=== PATIENT | female | born 1950 | race Caucasian/White ===

== ENCOUNTER 2015-12-28 10:31 | Outpatient (RCR) | payer MEDICARE, BC ==
[~2015-12-28 10:31] MED LIST: ACIPHEX20 MG PO; ADVAIR 500/28 DISKU1 IH; ALBUTEROL0.83 MG/ML IH; AMITIZA24 MCG PO; AMITIZA8 MCG; AMITIZA8 MCG PO; ASPIRIN 32325 MG/TA1 PO; ASPIRIN 32325 MG/TAB PO; ASPIRIN 81M81 MG/TA2 PO; ASPIRIN E.C. 8181 MG PO; ATROVENT I0.2 MG/1 M IH; ATROVENT INHALE14 GM IH; ATROVENT NASAL15 ML NS; BACTRIM DS 8001 TAB PO; BENTYL10 MG PO; BIAXIN 500MG T500 MG PO; BUSPAR10 MG PO; CARVEDILOL PO; CELEBREX 200MG200 MG PO; CELEBREX100 MG PO; CELEBREX200 MG PO; CELEXA40 MG PO; CHANTIX STARTER1 TAB PO; CHANTIX1 TAB PO; CLINDAMYCIN300 MG PO; CLOPIDOGREL; COLACE 100100 MG/CAP PO; COLACE100 MG/10 PO; COREG 3.123.125 MG/T PO; COREG3.125 MG PO; COREG6.25 MG PO; COUMADIN 5MG5 MG/TAB PO; COZAAR PO; CREON 60000 U-11 ECC PO; CYMBALTA 30MG30 MG PO; CYMBALTA 60MG60 MG PO; DALIRESP500 MCG PO; DESYREL 100MG100 MG PO; DESYREL 50MG50 MG; DESYREL 50MG50 MG PO; DULCOLAX S10 MG/SUPP RC; ENULOSE10 GM/151 PO; ERY-TAB250 M1 PO; FERROUS SU325 MG/TAB PO; FLOMAX 0.40.4 MG/CAP PO; FLONASE NASAL S16 GM NS; FLONASE0.05 MG/AC NS; FLOVENT 220MCG7.9 GM IH; FLOVENT0.22 MG/AC IH; FORADIL AERO0.012 MG IH; HCTZ; HCTZ/TRIAMTEREN1 TAB PO; IPRATROPIUM BROM3 M1 IH; LACTULOSE; LASIX40 MG PO; LIPITOR20 MG PO; LIPITOR40 MG PO; LOTENSIN20 MG PO; LYRICA 150MG C150 MG PO; LYRICA150 MG PO; MACROBID 1100 MG/CAP PO; MAXZIDE-25MG TA1 TAB PO; MEDROL 4MG DOSPA4 MG PO; MULTIPLE VITAMI1 TAB PO; NICODERM C21 MG/PATC TOP; NITROQUICK0.4 MG SL; NORCO 325 MG-51 TAB PO; OXYCODONE; OXYCODONE PO; OXYCODONE5 MG PO; OXYCONTIN 20MG20 MG PO; OXYCONTIN10 MG PO; OXYCONTIN30 MG PO; OXYCONTIN40 MG PO; OXYGEN; PERCOCET 325 MG1 TA2 PO; PERCOCET 650 MG1 TAB PO; PHENERGAN W/CO120 M1 PO; POTASSIUM20 MEQ PO; PREDNISONE10 MG PO; PREDNISONE20 MG PO; PREVACID 30MG30 M1 PO; PRIL40 PO; PROVENTIL0.09 MG/Ac IH; PYRIDIUM 100MG100 MG PO; RAPAFLO4 MG PO; REGLAN 10MG10 MG/TAB PO; REGLAN 5MG T5 MG/TAB PO; REQUIP 0.5MG0.5 MG PO; REQUIP0.25 MG; ROXICODONE 55 MG/TAB PO; RT ADVAIR 228 DISKUS IH; RT ADVAIR 528 DISKUS IH; RT ALBUTER2.5 MG/0.5 IH; RT SPIRIVA18 MCG IH; SENNA LEAVES1 GRA; SENOKOT TABLET1 EA PO; SENOKOT8.6 MG PO; SIMVASTATIN40 MG PO; SINGULAIR 110 MG/TAB PO; SINGULAIR10 MG PO; SPIRIVA INHALER IH; SPIRIVA18 MCG IH; TRIAMTERENE W/H1 CAP PO; UROXATRAL10 M1 PO; VALIUM 2MG T2 MG/TAB PO; VALIUM 5MG T5 MG/TAB PO; VANCOCIN H125 MG/CAP; VENTOLIN0.09 MG IH; VICODIN 5/5001 UDTAB PO; VITAMIN C BUFF500 MG PO; XOPENEX 1.1.25 MG/3 IH; XOPENEX0.63 MG/3 IH; ZETIA10 MG PO; ZITHROMAX 250M250 MG PO; ZITHROMAX500 M2 PO; ZOCOR 40MG40 MG PO
[2016-01-16] MEDS ORDERED: PRAVACHOL 40MG40 MG PO (10:09)
[2016-01-16] MEDS ORDERED: SPIRIVA RE2.5 MCG/Ac IH (10:10)
[2016-01-16] MEDS ORDERED: AMITRIPTYLINE H25 M1 PO (10:11)
[2016-01-16] MEDS ORDERED: BACTRIM DS 8001 TAB PO (11:40)
[2016-01-18] MEDS ORDERED: ERY-TAB250 M1 PO (12:00)
[2016-01-25] MEDS ORDERED: WELLBUTRIN 75MG75 MG PO (13:47)
[2016-02-08] MEDS ORDERED: CYMBALTA 60MG60 MG (11:58)
[2016-02-08] MEDS ORDERED: BACTRIM DS 8001 TAB PO (14:50)
[2016-03-15] MEDS ORDERED: ALKA-SELTZER GO1 TE1 PO (08:54)
[2016-03-15] MEDS ORDERED: ROBITUSSIN A-C S1 M1 (08:55)
[2016-03-15] MEDS ORDERED: BIAXIN 500MG T500 MG PO (08:55)
== END 2016-03-27 | disposition home or self-care (01) ==
LOC: WSC
DX: M79.601 Pain in right arm (principal); R20.0 Anesthesia of skin; G20 Parkinson's disease

== ENCOUNTER 2016-03-15 08:05 | Day surgery (SDC) | payer MEDICARE ==
[~2016-03-15 08:05] MED LIST changes: +AMITRIPTYLINE H25 M1 PO; +CYMBALTA 60MG60 MG; +PRAVACHOL 40MG40 MG PO; +SPIRIVA RE2.5 MCG/Ac IH; +WELLBUTRIN 75MG75 MG PO
[2016-03-15] MEDS ORDERED: ALKA-SELTZER GO1 TE1 PO (08:54)
[2016-03-15] MEDS ORDERED: BIAXIN 500MG T500 MG PO (08:55)
[2016-03-15] MEDS ORDERED: ROBITUSSIN A-C S1 M1 (08:55)
[2016-03-15 11:00] VITALS: BP 150/79; PULSE 69; TEMP 97.9
[2016-03-15 11:47] VITALS: BP 150/93; PULSE 96
[2016-03-15 12:08] VITALS: BP 154/107; PULSE 84
== END 2016-03-15 15:26 | disposition home or self-care (01) ==
LOC: SDCO 08:05 → MEDICAL 08:06 → SDCO 09:30
DX: R05 Cough (principal); G20 Parkinson's disease; J44.9 Chronic obstructive pulmonary disease, unspecified; J45.909 Unspecified asthma, uncomplicated; I50.9 Heart failure, unspecified; Z87.891 Personal history of nicotine dependence
CPT/HCPCS: OP; J0456; J2704; J2920; J7050; J7120

== ENCOUNTER → 2016-07-01 | Outpatient (CLI) | payer MEDICARE ==
[~2016-07-01] MED LIST changes: +ALKA-SELTZER GO1 TE1 PO; +COZAAR 50MG50 MG/TAB PO; +COZAAR100 MG PO; +ERY-TAB250 MG PO; +FLEXERIL 1010 MG/TAB PO; +FLONASEALLERGY NS; +INCRUSE EL62.5 MCG/A IH; +K-TAB20 PO; +KLONOPIN 1MG1 MG PO; +LANOXIN 0.120.125 MG PO; +LASIX 40MG TABL40 MG PO; +NEURONTIN600 MG/TAB PO; +PERFOROMIS20 MCG/2 M IH; +PROAIR HFA0.09 MG/AC IH; +PULMICORT R1 MG/2 ML IH; +PULMICORT0.5 MG/2 M IH; +ROBITUSSIN A-C S1 M1; +SMZ/TMPDS PO; +VANCOCIN HCL1 GM IV
== END ==
LOC: WCC 09:00
DX: T81.31XA Disruption of external operation (surgical) wound, not elsewhere classified, initial encounter (principal)
CPT/HCPCS: 17717; 27517; A6207; A6212; G0463

== ENCOUNTER → 2016-07-04 | Outpatient (CLI) | payer MEDICARE | LOC: WCC 09:00 | DX: Z00.00 Encounter for general adult medical examination without abnormal findings (principal) ==

== ENCOUNTER → 2016-07-04 | Outpatient (CLI) | payer MEDICARE | LOC: ZCOL.LAB 14:50 | DX: T81.31XA Disruption of external operation (surgical) wound, not elsewhere classified, initial encounter (principal) ==

== ENCOUNTER → 2016-07-11 | Outpatient (CLI) | payer MEDICARE | LOC: WCC 09:36 | DX: Z00.00 Encounter for general adult medical examination without abnormal findings (principal) ==

== ENCOUNTER 2016-08-07 08:48 | Emergency (ER) | payer MEDICARE ==
[~2016-08-07] VITALS: Ht 170.2 cm; Wt 71.4 kg
[~2016-08-07 08:48] MED LIST changes: -COZAAR 50MG50 MG/TAB PO; -COZAAR100 MG PO; -ERY-TAB250 MG PO; -FLEXERIL 1010 MG/TAB PO; -FLONASEALLERGY NS; -INCRUSE EL62.5 MCG/A IH; -K-TAB20 PO; -KLONOPIN 1MG1 MG PO; -LANOXIN 0.120.125 MG PO; -LASIX 40MG TABL40 MG PO; -NEURONTIN600 MG/TAB PO; -PERFOROMIS20 MCG/2 M IH; -PROAIR HFA0.09 MG/AC IH; -PULMICORT R1 MG/2 ML IH; -PULMICORT0.5 MG/2 M IH; -SMZ/TMPDS PO; -VANCOCIN HCL1 GM IV
[2016-08-07 08:50] VITALS: TEMP 98.8
[2016-08-07] MEDS ORDERED: SMZ/TMPDS PO (08:55)
[2016-08-07 09:36] LABS: BASO # 0.1 (0.0-0.2); BASO % 0.8 % (0.0-2.0); EOS # 0.1 (0.0-0.7); EOS % 1.2 % (0-4.0); GRAN # 5.3 (1.4-6.5); GRAN % 67.8 % (42.2-75.2); HEMATOCRIT 43.9 % (37.0-47.0); HEMOGLOBIN 14.1 g/dl (12.5-16.0); LYMPH # 1.7 (1.2-3.4); LYMPH % 21.7 % (20.0-51.0); MEAN CELL VOLUME 92 fl (80.0-100.0); MEAN CORPUSCULAR HEMOGLOBIN 30 pg (27.0-31.0); MEAN CORPUSCULAR HGB CONC 32 g/dl (33.0-37.0); MEAN PLATELET VOLUME 9.6 fl (7.4-10.4); MONO # 0.7 (0.1-0.6); MONO % 8.4 % (1.7-9.3); PLATELET COUNT 304 K/mm3 (130-400); RED BLOOD COUNT 4.76 M/mm3 (4.10-5.30); REDCELL DISTRIBUTION WIDTH-CV 12.9 % (11.5-14.5); WHITE BLOOD COUNT 7.8 K/mm3 (4.8-10.8)
[2016-08-07 09:39] LABS: PH 6 (5-8); SQUAMOUS EPITHELIAL None Seen /hpf; URINE APPEARANCE Clear; URINE BACTERIA Rare /hpf; URINE BILIRUBIN Negative (NEGATIVE); URINE BLOOD Negative (NEGATIVE); URINE COLOR Yellow; URINE GLUCOSE Negative (NEGATIVE); URINE KETONE Negative (NEGATIVE); URINE RBC 0-2 /hpf; URINE UROBILINOGEN Negative (NEGATIVE); URINE WBC None Seen /hpf
[2016-08-07 09:45] LABS: ADJUSTED CALCIUM 8.6 mg/dL (8.4-10.2); ALBUMIN 4.4 gm/dL (3.5-5.0); BILIRUBIN,TOTAL 0.5 mg/dL (0.0-1.0); CALCIUM 8.9 mg/dL (8.4-10.2); CREATININE, serum 0.95 mg/dL (0.52-1.25); POTASSIUM 4.6 mmol/L (3.4-5.0); TOTAL PROTEIN 7.3 gm/dL (6.4-8.2)
[2016-08-07 09:46] LABS: C-REACTIVE PROTEIN 0.5 mg/dL (0.0-0.9)
[2016-08-07] MEDS ORDERED: ERY-TAB250 MG PO (10:42)
[2016-08-07 17:05] VITALS: BP 119/66; PULSE 78
== END 2016-08-07 17:04 | disposition home or self-care (01) ==
LOC: COL.ER 08:48
PROVIDERS: Emergency Medicine
DX: R51 Headache (principal); G20 Parkinson's disease; J44.9 Chronic obstructive pulmonary disease, unspecified; I42.8 Other cardiomyopathies; G62.9 Polyneuropathy, unspecified; Z90.49 Acquired absence of other specified parts of digestive tract; Z95.9 Presence of cardiac and vascular implant and graft, unspecified; Z98.890 Other specified postprocedural states; Z87.19 Personal history of other diseases of the digestive system
CPT/HCPCS: J1170; J2060; J2405; J7030; Q9967

== ENCOUNTER → 2016-09-24 | Outpatient (CLI) | payer MEDICARE ==
[~2016-09-24] MED LIST changes: +COZAAR 50MG50 MG/TAB PO; +COZAAR100 MG PO; +ERY-TAB250 MG PO; +FLEXERIL 1010 MG/TAB PO; +FLONASEALLERGY NS; +INCRUSE EL62.5 MCG/A IH; +K-TAB20 PO; +KLONOPIN 1MG1 MG PO; +LANOXIN 0.120.125 MG PO; +LASIX 40MG TABL40 MG PO; +NEURONTIN600 MG/TAB PO; +PERFOROMIS20 MCG/2 M IH; +PROAIR HFA0.09 MG/AC IH; +PULMICORT R1 MG/2 ML IH; +PULMICORT0.5 MG/2 M IH; +SMZ/TMPDS PO; +VANCOCIN HCL1 GM IV
[2016-09-24 20:36] LABS: BASO % 0.3 % (0.0-2.0); EOS # 0.2 (0.0-0.7); EOS % 3.8 % (0-4.0); GRAN % 65.3 % (42.2-75.2); LYMPH # 1.2 (1.2-3.4); LYMPH % 20.3 % (20.0-51.0); MEAN CELL VOLUME 95 fl (80.0-100.0); MEAN CORPUSCULAR HGB CONC 31 g/dl (33.0-37.0); MEAN PLATELET VOLUME 10.1 fl (7.4-10.4); MONO # 0.6 (0.1-0.6); PLATELET COUNT 226 K/mm3 (130-400); RED BLOOD COUNT 3.69 M/mm3 (4.10-5.30); REDCELL DISTRIBUTION WIDTH-CV 13.5 % (11.5-14.5); WHITE BLOOD COUNT 6.1 K/mm3 (4.8-10.8)
[2016-09-24 20:43] LABS: HEMOGLOBIN 10.9 g/dl (12.5-16.0); MEAN CORPUSCULAR HEMOGLOBIN 30 pg (27.0-31.0)
[2016-09-24 20:50] LABS: ADJUSTED CALCIUM 9.4 mg/dL (8.4-10.2); ALBUMIN 3.3 gm/dL (3.5-5.0); BILIRUBIN,TOTAL 0.3 mg/dL (0.0-1.0); C-REACTIVE PROTEIN 1.8 mg/dL (0.0-0.9); CALCIUM 8.8 mg/dL (8.4-10.2); CREATININE, serum 0.79 mg/dL (0.52-1.25); POTASSIUM 4.4 mmol/L (3.4-5.0); TOTAL PROTEIN 5.4 gm/dL (6.4-8.2)
[2016-09-24 20:53] LABS: VANCOMYCIN TROUGH 9.2 ug/mL (7.00-20.00)
[2016-09-24 21:04] LABS: ERYTHROCYTE SEDIMENTATION RATE 1 mm/hr (0-30)
== END ==
LOC: ZCOL.LAB 19:13
DX: Z79.2 Long term (current) use of antibiotics (principal)

== ENCOUNTER → 2016-10-01 | Outpatient (CLI) | payer MEDICARE ==
[2016-10-01 10:43] LABS: BASO # 0.1 (0.0-0.2); BASO % 1.6 % (0.0-2.0); EOS # 0.3 (0.0-0.7); GRAN % 66.7 % (42.2-75.2); HEMATOCRIT 37.6 % (37.0-47.0); HEMOGLOBIN 12.2 g/dl (12.5-16.0); LYMPH # 1.4 (1.2-3.4); LYMPH % 18.6 % (20.0-51.0); MEAN CELL VOLUME 91 fl (80.0-100.0); MEAN CORPUSCULAR HEMOGLOBIN 29 pg (27.0-31.0); MEAN CORPUSCULAR HGB CONC 32 g/dl (33.0-37.0); MEAN PLATELET VOLUME 9.8 fl (7.4-10.4); MONO # 0.7 (0.1-0.6); MONO % 8.8 % (1.7-9.3); PLATELET COUNT 304 K/mm3 (130-400); RED BLOOD COUNT 4.15 M/mm3 (4.10-5.30); REDCELL DISTRIBUTION WIDTH-CV 13.1 % (11.5-14.5); WHITE BLOOD COUNT 7.5 K/mm3 (4.8-10.8)
[2016-10-01 10:52] LABS: VANCOMYCIN TROUGH 8.6 ug/mL (7.00-20.00)
[2016-10-01 10:59] LABS: C-REACTIVE PROTEIN 0.9 mg/dL (0.0-0.9)
[2016-10-01 11:05] LABS: ERYTHROCYTE SEDIMENTATION RATE 10 mm/hr (0-30)
[2016-10-03 15:04] LABS: ADJUSTED CALCIUM 9.2 mg/dL (8.4-10.2); ALBUMIN 3.4 gm/dL (3.5-5.0); BILIRUBIN,TOTAL 0.4 mg/dL (0.0-1.0); CALCIUM 8.7 mg/dL (8.4-10.2); CREATININE, serum 0.69 mg/dL (0.52-1.25); POTASSIUM 4.5 mmol/L (3.4-5.0); TOTAL PROTEIN 5.9 gm/dL (6.4-8.2)
== END ==
LOC: ZCOL.LAB 10:16
PROVIDERS: Internal Medicine
DX: Z79.2 Long term (current) use of antibiotics (principal)

== ENCOUNTER → 2016-10-02 | Outpatient (CLI) | payer MEDICARE ==
[2016-10-02 12:38] LABS: ARTERIAL BLD GAS O2 SATURATION 93.2 % (92-100); ARTERIAL BLOOD GAS BASE EXCESS 1.5 (-2-2); ARTERIAL BLOOD GAS HCO3 27.8 meq/L (22-26); ARTERIAL BLOOD GAS PO2 70.1 mmHg (80-100); ARTERIAL BLOOD GAS pH 7.35 (7.35-7.45)
[2016-10-02 12:39] LABS: ARTERIAL BLD GAS TCO2 CT 29.4
[2016-10-02 12:40] LABS: ALLEN TEST NO; ATS? YES
== END ==
LOC: COL.CARD 12:08 → COL.PUL 12:08
PROVIDERS: Physician Assistant
DX: J44.1 Chronic obstructive pulmonary disease with (acute) exacerbation (principal)

== ENCOUNTER 2016-10-08 15:52 | Outpatient (CLI) | payer MEDICARE ==
[~2016-10-08] VITALS: Ht 170.2 cm; Wt 79.0 kg
[2016-10-08 15:52] VITALS: BP 138/86; PULSE 68; TEMP 98.2
[~2016-10-08 15:52] MED LIST changes: -COZAAR 50MG50 MG/TAB PO; -COZAAR100 MG PO; -FLEXERIL 1010 MG/TAB PO; -FLONASEALLERGY NS; -INCRUSE EL62.5 MCG/A IH; -K-TAB20 PO; -KLONOPIN 1MG1 MG PO; -LANOXIN 0.120.125 MG PO; -LASIX 40MG TABL40 MG PO; -NEURONTIN600 MG/TAB PO; -PERFOROMIS20 MCG/2 M IH; -PROAIR HFA0.09 MG/AC IH; -PULMICORT R1 MG/2 ML IH; -PULMICORT0.5 MG/2 M IH; -VANCOCIN HCL1 GM IV
[2016-10-08] MEDS ORDERED: NEURONTIN600 MG/TAB PO (18:02)
[2016-10-08] MEDS ORDERED: COREG 3.123.125 MG/T PO (18:03)
[2016-10-08] MEDS ORDERED: KLONOPIN 1MG1 MG PO (18:05)
[2016-10-08] MEDS ORDERED: FLONASEALLERGY NS (18:06)
[2016-10-08] MEDS ORDERED: LASIX 40MG TABL40 MG PO (18:06)
[2016-10-08] MEDS ORDERED: ROXICODONE 55 MG/TAB PO (18:07)
[2016-10-08] MEDS ORDERED: INCRUSE EL62.5 MCG/A IH (18:08)
[2016-10-08] MEDS ORDERED: COZAAR 50MG50 MG/TAB PO (18:09)
[2016-10-08] MEDS ORDERED: PROAIR HFA0.09 MG/AC IH (18:09)
== END 2016-10-08 18:39 | disposition home or self-care (01) ==
LOC: EUO 15:52
DX: Z95.828 Presence of other vascular implants and grafts (principal)

== ENCOUNTER → 2016-10-08 | Outpatient (CLI) | payer MEDICARE ==
[2016-10-08 10:08] LABS: BASO # 0.1 (0.0-0.2); BASO % 0.7 % (0.0-2.0); EOS % 0.3 % (0-4.0); GRAN # 5.6 (1.4-6.5); GRAN % 59.9 % (42.2-75.2); HEMATOCRIT 38.5 % (37.0-47.0); HEMOGLOBIN 12.3 g/dl (12.5-16.0); LYMPH # 2.6 (1.2-3.4); LYMPH % 27.3 % (20.0-51.0); MEAN CELL VOLUME 92 fl (80.0-100.0); MEAN CORPUSCULAR HEMOGLOBIN 30 pg (27.0-31.0); MEAN CORPUSCULAR HGB CONC 32 g/dl (33.0-37.0); MONO # 1.1 (0.1-0.6); MONO % 11.3 % (1.7-9.3); PLATELET COUNT 319 K/mm3 (130-400); RED BLOOD COUNT 4.17 M/mm3 (4.10-5.30); REDCELL DISTRIBUTION WIDTH-CV 13.2 % (11.5-14.5); WHITE BLOOD COUNT 9.3 K/mm3 (4.8-10.8)
[2016-10-08 10:39] LABS: ERYTHROCYTE SEDIMENTATION RATE 1 mm/hr (0-30)
[2016-10-08 10:46] LABS: ALANINE AMINOTRANSFERASE 83 U/L (9-52); ALBUMIN 3.8 gm/dL (3.5-5.0); ALKALINE PHOSPHATASE 77 U/L (50-136); ANION GAP 8 mmol/L (7-16); BILIRUBIN,TOTAL 0.4 mg/dL (0.0-1.0); BLOOD UREA NITROGEN 17 mg/dL (7-17); CALCIUM 8.8 mg/dL (8.4-10.2); CARBON DIOXIDE 32 mmol/L (22-30); CHLORIDE 99 mmol/L (98-107); CREATININE, serum 0.72 mg/dL (0.52-1.25); GLUCOSE 79 mg/dL (74-106); SODIUM 139 mmol/L (137-145); TOTAL PROTEIN 6.1 gm/dL (6.4-8.2)
[2016-10-08 10:49] LABS: VANCOMYCIN TROUGH 13.64 ug/mL (7.00-20.00)
[2016-10-08 11:02] LABS: C-REACTIVE PROTEIN < 0.5 mg/dL (0.0-0.9)
== END ==
LOC: ZCOL.LAB 09:56
DX: Z79.2 Long term (current) use of antibiotics (principal)

== ENCOUNTER 2016-10-12 17:09 | Inpatient (IN) | payer MEDICARE ==
[~2016-10-12] VITALS: Ht 170.2 cm; Wt 78.1 kg
[~2016-10-12 17:09] MED LIST changes: +COREG12.5 MG PO; -COZAAR100 MG PO; -FLEXERIL 1010 MG/TAB PO; -INCRUSE EL62.5 MCG/A IH; -K-TAB20 PO; -LANOXIN 0.120.125 MG PO; +NEURONTIN300 MG/CAP PO; -NEURONTIN600 MG/TAB PO; -PERFOROMIS20 MCG/2 M IH; -PULMICORT R1 MG/2 ML IH; -PULMICORT0.5 MG/2 M IH; +TRELEGY ELLIPT1 EACH IH; -VANCOCIN HCL1 GM IV; -WELLBUTRIN 75MG75 MG PO; +WELLBUTRIN XL150 MG PO
[2016-10-12 17:56] LABS: BASO # 0.1 (0.0-0.2); BASO % 0.5 % (0.0-2.0); EOS % 0.2 % (0-4.0); GRAN # 8.3 (1.4-6.5); GRAN % 87.3 % (42.2-75.2); LYMPH # 0.8 (1.2-3.4); LYMPH % 8.2 % (20.0-51.0); MEAN CELL VOLUME 94 fl (80.0-100.0); MEAN CORPUSCULAR HGB CONC 31 g/dl (33.0-37.0); MEAN PLATELET VOLUME 9.6 fl (7.4-10.4); MONO # 0.3 (0.1-0.6); MONO % 3.3 % (1.7-9.3); PLATELET COUNT 252 K/mm3 (130-400); RED BLOOD COUNT 3.91 M/mm3 (4.10-5.30); REDCELL DISTRIBUTION WIDTH-CV 13.7 % (11.5-14.5)
[2016-10-12 17:57] LABS: HEMATOCRIT 36.8 % (37.0-47.0); HEMOGLOBIN 11.4 g/dl (12.5-16.0); MEAN CORPUSCULAR HEMOGLOBIN 29 pg (27.0-31.0)
[2016-10-12 17:58] LABS: ALBUMIN 3.7 gm/dL (3.5-5.0); BILIRUBIN,TOTAL 0.4 mg/dL (0.0-1.0); CALCIUM 8.7 mg/dL (8.4-10.2); CREATININE, serum 0.77 mg/dL (0.52-1.25); POTASSIUM 4.4 mmol/L (3.4-5.0); TOTAL PROTEIN 6.4 gm/dL (6.4-8.2)
[2016-10-12 18:04] LABS: ARTERIAL BLD GAS O2 SATURATION 96.6 % (92-100); ARTERIAL BLD GAS TCO2 CT 29.2; ARTERIAL BLOOD GAS BASE EXCESS 1.2 (-2-2); ARTERIAL BLOOD GAS HCO3 27.6 meq/L (22-26); ARTERIAL BLOOD GAS PCO2 51.7 mmHg (35-45); ARTERIAL BLOOD GAS PO2 95.6 mmHg (80-100); ARTERIAL BLOOD GAS pH 7.35 (7.35-7.45)
[2016-10-12] MEDS ORDERED: VANCOCIN HCL1 GM IV (18:31)
[2016-10-12 18:53] LABS: COLLECTION METHOD CLEAN CATCH
[2016-10-12 18:59] LABS: MUCOUS Present /lpf; PH 6 (5-8); SQUAMOUS EPITHELIAL 0-2 /hpf; URINE APPEARANCE Clear; URINE BACTERIA None Seen /hpf; URINE BILIRUBIN Negative (NEGATIVE); URINE BLOOD Negative (NEGATIVE); URINE COLOR Yellow; URINE GLUCOSE Negative (NEGATIVE); URINE KETONE Negative (NEGATIVE); URINE LEUKOCYTE ESTERASE Negative (NEGATIVE); URINE NITRATE Negative (NEGATIVE); URINE PROTEIN(semi-quant) Negative (NEGATIVE); URINE UROBILINOGEN Negative (NEGATIVE)
--- NOTE | 2016-10-12 20:15 | NUR ---
Pt arrived to room 317, transferred by ED staff per wheelchair. Pt awake, a&o, cooperative c cares. Hu at bedside. Pt/hu oriented to room, unit policies et current POC. Questions invited et answered, both verbalize understanding. No further needs. Will continue c admit process.
[2016-10-12 20:24] VITALS: BP 130/87; PULSE 97; TEMP 98.1
[2016-10-13 01:05] VITALS: BP 148/92; PULSE 113; TEMP 98.3
[2016-10-13 04:59] VITALS: BP 169/108; PULSE 109; TEMP 98.1
[2016-10-13 06:01] LABS: HEMATOCRIT 38.4 % (37.0-47.0); MEAN CELL VOLUME 94 fl (80.0-100.0); MEAN CORPUSCULAR HEMOGLOBIN 29 pg (27.0-31.0); MEAN CORPUSCULAR HGB CONC 31 g/dl (33.0-37.0); MEAN PLATELET VOLUME 9.6 fl (7.4-10.4); PLATELET COUNT 269 K/mm3 (130-400); REDCELL DISTRIBUTION WIDTH-CV 13.8 % (11.5-14.5)
[2016-10-13 06:41] LABS: CALCIUM 8.7 mg/dL (8.4-10.2); CREATININE, serum 0.64 mg/dL (0.52-1.25); POTASSIUM 4.6 mmol/L (3.4-5.0)
[2016-10-13 08:04] VITALS: BP 143/86; PULSE 117; TEMP 98.4
--- NOTE | 2016-10-13 08:30 | NUR ---
Alert and oriented, sitting up at side of bed. Upper lobes lungs CTA and lower lobes diminished bilat. Bowel sounds x4. Central line to left subclavin, good blood return and flushes without difficulty.
[2016-10-13 09:53] LABS: BAND 40 % (0-10); LYMPHOCYTE 12 % (20.0-51.0); METAMYELOCYTE 1 % (0-0); NEUTROPHILS 47 % (42.0-75.2); PLATELET ESTIMATE NORMAL (NORMAL)
[2016-10-13 11:50] VITALS: BP 145/95; PULSE 104; TEMP 98.2
[2016-10-13 15:19] VITALS: BP 139/77; PULSE 90; TEMP 98
--- NOTE | 2016-10-13 20:15 | NUR ---
Shift assessment complete. Pt resting in bed, awake, a&o, friendly et cooperative c cares. Pt reports continued, chronic back pain, PRN pain remediation bioanalytics consultant. Pt denies other c/o. Pt amb frequently in halls. PICC to L chest, patent. Pt s needs. Call light in reach, will monitor.
[2016-10-13 20:45] VITALS: BP 136/82; PULSE 95; TEMP 97.9
[2016-10-14] VITALS (15 sets, daily range): BP systolic 103–178; BP diastolic 70–90; PULSE 57–131; TEMP 97.6–98.8
--- NOTE | 2016-10-14 05:58 | NUR ---
Pt resting in bed, denies c/o. Pt has slept very heavily this shift et become disoriented/confused when woken up. Continues to amb halls frequently. Able to reorient pt. Pt denies needs. Call light in reach.
[2016-10-14 07:13] LABS: CREATININE, serum 0.79 mg/dL (0.52-1.25)
--- NOTE | 2016-10-14 09:00 | NUR ---
Alert and oriented. Denies pain and needs at this time. Lungs CTA at upper lobes and diminished at bases bilat. Bowel sounds x4. PICC to left chest good blood return and flushes without difficulty.
--- NOTE | 2016-10-14 11:10 | NUR ---
First visit from the promotion officer. Tack Driller prayed with patient. No other spiritual needs right now.
--- NOTE | 2016-10-14 14:54 | NUR ---
SW and SW student met with patient to discuss discharge plan. Patient has a cane and has been using oxygen at night. She reports being independent with ADLs and passionate about working. 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 Patient's goal is to return home with (Thierry), upon discharge. No anticipated needs.
--- NOTE | 2016-10-14 20:20 | NUR ---
Shift assessment complete. Pt resting in bed, awake, a&o, cooperative c cares. Pt c/o chronic back pain, PRN pain meds admin. Pt denies other c/o. PICC noted to L chest, patent c good blood return. Pt denies further needs. Call light in reach, will monitor.
[2016-10-15 00:29] VITALS: BP 136/63; PULSE 63; TEMP 98.7
--- NOTE | 2016-10-15 06:13 | NUR ---
Pt resting in bedside recliner. Pt has been very confused int throughout shift. Restless, et did not sleep for >1 hour periods. She has been very confused each time she has woken up, taking 30 min or more to become reoriented. Pt reports "I'm usually not like this, it's jermaine scaring me". Denies needs at this time. Call light in reach.
[2016-10-15 07:26] VITALS: BP 142/63; PULSE 83; TEMP 97.2
[2016-10-15 07:44] LABS: CALCIUM 8.4 mg/dL (8.4-10.2); CREATININE, serum 0.94 mg/dL (0.52-1.25); MAGNESIUM 1.7 mg/dL (1.6-2.3); POTASSIUM 3.5 mmol/L (3.4-5.0)
--- NOTE | 2016-10-15 12:14 | NUR ---
Follow up visit from the hawk missile air defense artillery. Great conversation. No spiritual needs right now.
[2016-10-15 12:19] VITALS: BP 132/83; PULSE 82; TEMP 98.1
[2016-10-15 15:30] VITALS: BP 126/55; PULSE 93; TEMP 97.2
--- NOTE | 2016-10-15 20:30 | NUR ---
A/O, DENIES PAIN, SEE ASSESSMENT. DROWSY-SLEEPY, TAKES A LITTLE WHILE AFTER AWAKENING TO GET THOUGHTS TOGETHER. NO O2 ON AT PRESENT, SSTATES HASNT SLEPT MUCH, REALLY TIRED. UP IN ROOM, STEADY ON FEET. SLIGHT TREMOR OF HANDS/ARMS WHEN EATING BREAKFAST. WANTS VANCOMYCIN GIVEN AT SAME TIMES HAS BEEN GIVING AT HOME- -. WILL CHECK WITH PHARMACY.
[2016-10-15 20:37] VITALS: BP 137/69; PULSE 79; TEMP 98
--- NOTE | 2016-10-15 20:40 | NUR ---
PT SLEPT MAJORITY OF AFTERNOON, STATES FELT MUCH BETTER. TALKED TO GASPER AT - PT TO KEEP APPTS ON THURSDAY- RELAYED TO PT AND , TALKED TO [facility] [employer] SUPPLIER FOR VANCOMYCIN AND FAXED SCRIPT FOR CURRENT DOSE OF VANCOMYCIN, PT REQUEST NICODERM PATCH AND ORDERED AND APPLIED. PT WALKS IN [place] WITH AND TO KITCHENETTE TO GET ICE FOR DRINK. STEADY ON FEET. MORE TREMOR IN ARMS AND HANDS AT LUNCH AND AFTER AFTER AWAKE FOR SUPPER.
--- NOTE | 2016-10-15 21:35 | NUR ---
PT RESTING IN BED. STATES PAIN IN RIGHT ARM, 5/10, PROVIDED ORAL PRN PAIN MEDICATION. BED IN LOW POSITION. CALL LIGHT WITHIN REACH
[2016-10-16] VITALS (7 sets, daily range): BP systolic 115–151; BP diastolic 51–80; PULSE 84–95; TEMP 97.9–99.9
--- NOTE | 2016-10-16 02:06 | NUR ---
PT REFUSED 0200 TREATMENT DUE TO OVER COUGHING.. PT RECIEVED TWO NEW MEDS.. PULMICORT 0.5MG AND pERFOROMIST.. WANTED TO SLEEP
[2016-10-16 07:41] LABS: CALCIUM 8.2 mg/dL (8.4-10.2); CREATININE, serum 0.84 mg/dL (0.52-1.25); POTASSIUM 3.8 mmol/L (3.4-5.0)
--- NOTE | 2016-10-16 12:43 | NUR ---
Patient has order for Life Vest but want to speak with Life vest Rep before making decision. NCM spoke with Darien ([facility] Rep) states he just spoke with the patient on the phone. As per Darien, patient will wait for and patient will call him so he can talk both to patient and . Life Vest order form and clinicals faxed to [facility], fax #[phone]. #[phone].
--- NOTE | 2016-10-16 13:46 | NUR ---
Primary nurse was assisted with [phone] patient care by [employer] student Tara Chandra and [employer] instructor Maral Dominguez RN-BC.
--- NOTE | 2016-10-16 15:04 | NUR ---
SW informed of the patient's ongoing outpatient IV antibiotic need. Patient has been recieving IV antibiotics through [facility] reporting that they need a new order for her IV medication and requests order be faxed to #[phone] upon discharge. CARRIE to continue to follow.
--- NOTE | 2016-10-16 15:11 | NUR ---
SW informed of the patient's ongoing outpatient IV antibiotic need. Patient has been recieving IV antibiots through [facility] reporting that they need a new order for her IV medication and request that order be faxed to #[phone] upon discharge. SW to continue to follow.
--- NOTE | 2016-10-16 19:47 | NUR ---
PT CAME TO NURSING STAFF DURING SHIFT CHANGE AND REPORTED HIS NEEDED HER KLONOPIN BECAUSE SHE FELT MYOCLONUS MOVEMENTS IN HER EXTREMITIES WERE GOING TO START HAPPENING. CONTACT LANDSCAPE ARCHITECT WHO CONTINUED HER HOME DOSE AND I ADMINISTERED THE MEDICATION. BED IN LOW POSITION, CALL LIGHT WITHIN REACH.
--- NOTE | 2016-10-16 19:54 | NUR ---
LUNG SOUNDS CLEAR, NO WHEEZING AND FEELS BETTER AT SUPPER. I/O DONE, PT HAS PAPER AND PENCIL TO WRITE DOWN WHAT DRINKS, BROUGHT IN SUPPER. URINE PALE YELLLOW AND CLEAR.
--- NOTE | 2016-10-16 19:56 | NUR ---
STUDENT NURSE ASSISTED WITH CARES FROM 070 TIL 1300, DID NOT WANT PAIN RX, EXP WHEEZE ON LEFT BUT CLEAR ON RIGHT WITH DIMINISHED IN BASES AT 0830, STILL SOB WITH ACTIVITY, ALTHOUGH DOES NOT USE O2 MAJORITY OF TIME. UP AND DOWN IN ROOM, WALKS IN HALLWAY AT TIMES-STATES SLEPT GOOD FROM 0200 TIL 0700. TRMOR UPPER EXTREMITIES MORE WITH EATING AND INTENTIONAL MOVEMENT. FEELS LITTLE JITTERY AT TIMES. CENTRAL LINE LEFT CHEST PATENT, DRSG D/I.
--- NOTE | 2016-10-16 20:00 | NUR ---
IV LASIX AND POTASSIUM GIVEN ORDERED, INSTRUCTED IN PLANNED EFFECTS AND NEED TO KEEP ACCURATE I/O, PT AWARE OF WHAT HAS DRANK, INSTRUCTED IN USE OF HAT TO COLLECT URINE. DOZED OFF AND ON DURING AFTERNOON.
[2016-10-17 04:00] VITALS: BP 138/66; PULSE 84; TEMP 97.2
[2016-10-17 08:08] VITALS: BP 124/79; PULSE 91; TEMP 98.4
[2016-10-17 10:10] LABS: CALCIUM 8.4 mg/dL (8.4-10.2); CREATININE, serum 0.81 mg/dL (0.52-1.25); POTASSIUM 4.2 mmol/L (3.4-5.0)
[2016-10-17 10:15] LABS: VANCOMYCIN TROUGH 16.15 ug/mL (7.00-20.00)
--- NOTE | 2016-10-17 10:25 | NUR ---
Dr. Pascal's office to fax IV order to [place].
--- NOTE | 2016-10-17 10:27 | NUR ---
JOHN received a call from [employer]) states still waiting a call from patient and her . GRECIAM informed patient.
[2016-10-17] MEDS ORDERED: COZAAR100 MG PO (11:14)
[2016-10-17] MEDS ORDERED: LANOXIN 0.120.125 MG PO (11:14)
[2016-10-17] MEDS ORDERED: LASIX 40MG TABL40 MG PO (11:15)
[2016-10-17] MEDS ORDERED: PERFOROMIS20 MCG/2 M IH ×2 (11:16→12:41)
[2016-10-17] MEDS ORDERED: PULMICORT R1 MG/2 ML IH ×2 (11:16→12:41)
[2016-10-17] MEDS ORDERED: PREDNISONE20 MG PO (11:17)
[2016-10-17] MEDS ORDERED: K-TAB20 PO (11:39)
[2016-10-17 12:02] VITALS: BP 140/82; PULSE 76; TEMP 98.1
--- NOTE | 2016-10-17 13:54 | NUR ---
Kati CHEUNG reports that their physician will write orders for the IV medication. , .
[2016-10-17] MEDS ORDERED: PULMICORT0.5 MG/2 M IH (13:55)
--- NOTE | 2016-10-17 13:59 | NUR ---
Patient states she will not go home without Life Vest. JOHN spoke with Darien ([facility]) informed patient is going home today, states still waiting for approval. He can send Ivonne to fit patient for Life vest. JOHN informed patient, voices understanding.
--- NOTE | 2016-10-17 14:02 | NUR ---
Primary nurse was assisted with [phone] patient care by [employer] student Tara Chandra and [employer] instructor Maral Dominguez RN-.
[2017-05-27] MEDS ORDERED: RT ADVAIR 228 DISKUS IH (08:20)
[2017-05-27] MEDS ORDERED: DESYREL 50MG50 MG PO (08:20)
[2017-05-27] MEDS ORDERED: ZANAFLEX 4MG TAB4 MG PO (08:21)
[2017-05-27] MEDS ORDERED: SENNA-LAX8.6 MG PO (08:22)
[2017-05-27] MEDS ORDERED: COZAAR 50MG50 MG/TAB PO (08:23)
[2018-06-26] MEDS ORDERED: PREDNISONE10 MG PO (14:46)
[2018-06-26] MEDS ORDERED: CLEOCIN HCL300 MG PO (14:46)
== END 2016-10-17 19:00 | disposition home or self-care (01) | DRG 191 ==
LOC: COL.ER 17:09 → MEDICAL 19:01
PROVIDERS: Family Medicine; Internal Medicine Cardiovascular Disease; ADMIT Family Medicine
PROC: 4A02XM4 Measurement of Cardiac Total Activity, External Approach (ICD-10-PCS; principal; 2016-10-14)
PROC: 3E033HZ Introduction of Radioactive Substance into Peripheral Vein, Percutaneous Approach (ICD-10-PCS; 2016-10-14)
DX: J44.1 Chronic obstructive pulmonary disease with (acute) exacerbation (principal); I31.3 Pericardial effusion (noninflammatory); I42.9 Cardiomyopathy, unspecified; G90.511 Complex regional pain syndrome I of right upper limb; E87.70 Fluid overload, unspecified; G47.00 Insomnia, unspecified; Z88.0 Allergy status to penicillin; Z98.1 Arthrodesis status; Z87.891 Personal history of nicotine dependence; R50.9 Fever, unspecified
CPT/HCPCS: 99222-AI; 99232-AI; 99233-AI; 99239; A9502; C1769; C1892; J1160; J1250; J1644; J1650; J1940; J2250; J2920; J2930; J3010; J3370; J7030; J7050; Q9967

== ENCOUNTER → 2016-10-12 | Outpatient (CLI) | payer MEDICARE ==
[~2016-10-12] MED LIST changes: +COZAAR 50MG50 MG/TAB PO; +COZAAR100 MG PO; +FLEXERIL 1010 MG/TAB PO; +FLONASEALLERGY NS; +INCRUSE EL62.5 MCG/A IH; +K-TAB20 PO; +KLONOPIN 1MG1 MG PO; +LANOXIN 0.120.125 MG PO; +LASIX 40MG TABL40 MG PO; +NEURONTIN600 MG/TAB PO; +PERFOROMIS20 MCG/2 M IH; +PROAIR HFA0.09 MG/AC IH; +PULMICORT R1 MG/2 ML IH; +PULMICORT0.5 MG/2 M IH; +VANCOCIN HCL1 GM IV
== END ==
LOC: COL.LAB 06:48
DX: R50.9 Fever, unspecified (principal); R61 Generalized hyperhidrosis; Z86.19 Personal history of other infectious and parasitic diseases; Z45.89 Encounter for adjustment and management of other implanted devices

== ENCOUNTER → 2016-10-20 | Outpatient (CLI) | payer MEDICARE ==
[~2016-10-20] MED LIST changes: -COREG12.5 MG PO; +COZAAR100 MG PO; +FLEXERIL 1010 MG/TAB PO; +INCRUSE EL62.5 MCG/A IH; +K-TAB20 PO; +LANOXIN 0.120.125 MG PO; -NEURONTIN300 MG/CAP PO; +NEURONTIN600 MG/TAB PO; +PERFOROMIS20 MCG/2 M IH; +PULMICORT R1 MG/2 ML IH; +PULMICORT0.5 MG/2 M IH; -TRELEGY ELLIPT1 EACH IH; +VANCOCIN HCL1 GM IV; +WELLBUTRIN 75MG75 MG PO; -WELLBUTRIN XL150 MG PO
[2016-10-20 13:00] LABS: HEMATOCRIT 39.8 % (37.0-47.0); HEMOGLOBIN 12.6 g/dl (12.5-16.0); MEAN CELL VOLUME 93 fl (80.0-100.0); MEAN CORPUSCULAR HEMOGLOBIN 29 pg (27.0-31.0); MEAN CORPUSCULAR HGB CONC 32 g/dl (33.0-37.0); MEAN PLATELET VOLUME 10.4 fl (7.4-10.4); PLATELET COUNT 295 K/mm3 (130-400); RED BLOOD COUNT 4.29 M/mm3 (4.10-5.30); REDCELL DISTRIBUTION WIDTH-CV 14.4 % (11.5-14.5); WHITE BLOOD COUNT 15.6 K/mm3 (4.8-10.8)
[2016-10-20 13:04] LABS: ADD PATHOLOGY DIFF REVIEW NO; ADJUSTED CALCIUM 8.6 mg/dL (8.4-10.2); ALBUMIN 3.7 gm/dL (3.5-5.0); BILIRUBIN,TOTAL 0.5 mg/dL (0.0-1.0); CALCIUM 8.4 mg/dL (8.4-10.2); CREATININE, serum 1.04 mg/dL (0.52-1.25); POTASSIUM 4.1 mmol/L (3.4-5.0)
[2016-10-20 13:05] LABS: C-REACTIVE PROTEIN 0.5 mg/dL (0.0-0.9)
[2016-10-20 14:13] LABS: ERYTHROCYTE SEDIMENTATION RATE 1 mm/hr (0-30)
[2016-10-20 14:39] LABS: BAND 3 % (0-10); EOSINOPHIL 1 % (0-4); NEUTROPHILS 68 % (42.0-75.2); PLATELET ESTIMATE NORMAL (NORMAL); TOTAL CELLS COUNTED 100
== END ==
LOC: ZCOL.LAB 12:47
DX: Z79.2 Long term (current) use of antibiotics (principal)

== ENCOUNTER 2016-10-23 11:46 | Emergency (ER) | payer MEDICARE ==
[~2016-10-23] VITALS: Ht 170.2 cm; Wt 78.2 kg
[~2016-10-23 11:46] MED LIST changes: -FLEXERIL 1010 MG/TAB PO
[2016-10-23 11:50] VITALS: TEMP 98.7
[2016-10-23 14:07] LABS: MEAN CELL VOLUME 91 fl (80.0-100.0); MEAN CORPUSCULAR HGB CONC 32 g/dl (33.0-37.0); PLATELET COUNT 215 K/mm3 (130-400); RED BLOOD COUNT 4.05 M/mm3 (4.10-5.30); REDCELL DISTRIBUTION WIDTH-CV 13.8 % (11.5-14.5); WHITE BLOOD COUNT 9.7 K/mm3 (4.8-10.8)
[2016-10-23 14:09] LABS: HEMATOCRIT 36.8 % (37.0-47.0); HEMOGLOBIN 11.7 g/dl (12.5-16.0); MEAN CORPUSCULAR HEMOGLOBIN 29 pg (27.0-31.0)
[2016-10-23 14:10] LABS: ADD PATHOLOGY DIFF REVIEW NO
[2016-10-23 14:29] LABS: BAND 4 % (0-10); EOSINOPHIL 1 % (0-4); NEUTROPHILS 70 % (42.0-75.2); TOTAL CELLS COUNTED 100
[2016-10-23 14:30] LABS: PLATELET ESTIMATE NORMAL (NORMAL)
[2016-10-23 14:44] LABS: ADJUSTED CALCIUM 8.9 mg/dL (8.4-10.2); ALBUMIN 3.4 gm/dL (3.5-5.0); BILIRUBIN,TOTAL 0.4 mg/dL (0.0-1.0); C-REACTIVE PROTEIN 1.2 mg/dL (0.0-0.9); CALCIUM 8.4 mg/dL (8.4-10.2); CREATININE, serum 0.72 mg/dL (0.52-1.25); TOTAL PROTEIN 6.1 gm/dL (6.4-8.2)
[2016-10-23] MEDS ORDERED: FLEXERIL 1010 MG/TAB PO (14:45)
[2016-10-23 15:53] VITALS: BP 107/72; PULSE 109
== END 2016-10-23 15:48 | disposition home or self-care (01) ==
LOC: COL.ER 11:46
PROVIDERS: Emergency Medicine
DX: M54.2 Cervicalgia (principal); I50.9 Heart failure, unspecified; J44.9 Chronic obstructive pulmonary disease, unspecified; Z96.89 Presence of other specified functional implants; Z87.891 Personal history of nicotine dependence; Z79.82 Long term (current) use of aspirin

== ENCOUNTER 2016-12-03 13:15 | Emergency (ER) | payer MEDICARE ==
[~2016-12-03] VITALS: Ht 170.2 cm; Wt 80.9 kg
[~2016-12-03 13:15] MED LIST changes: +COREG 6.256.25 MG/TA PO; +FLEXERIL 1010 MG/TAB PO
[2016-12-03 13:18] VITALS: TEMP 98.8
[2016-12-03 13:37] LABS: BASO # 0.1 (0.0-0.2); BASO % 0.7 % (0.0-2.0); EOS # 0.1 (0.0-0.7); EOS % 1.6 % (0-4.0); GRAN # 5.1 (1.4-6.5); GRAN % 70.3 % (42.2-75.2); LYMPH # 1.3 (1.2-3.4); LYMPH % 17.6 % (20.0-51.0); MEAN CELL VOLUME 92 fl (80.0-100.0); MEAN CORPUSCULAR HEMOGLOBIN 29 pg (27.0-31.0); MEAN CORPUSCULAR HGB CONC 32 g/dl (33.0-37.0); MONO # 0.7 (0.1-0.6); MONO % 9.4 % (1.7-9.3); PLATELET COUNT 280 K/mm3 (130-400); RED BLOOD COUNT 4.03 M/mm3 (4.10-5.30); WHITE BLOOD COUNT 7.3 K/mm3 (4.8-10.8)
[2016-12-03 13:38] LABS: HEMOGLOBIN 11.7 g/dl (12.5-16.0)
[2016-12-03 13:50] LABS: ADJUSTED CALCIUM 8.9 mg/dL (8.4-10.2); ALANINE AMINOTRANSFERASE 54 U/L (9-52); ALBUMIN 3.9 gm/dL (3.5-5.0); ALKALINE PHOSPHATASE 86 U/L (50-136); ANION GAP 8 mmol/L (7-16); BILIRUBIN,TOTAL 0.4 mg/dL (0.0-1.0); BLOOD UREA NITROGEN 18 mg/dL (7-17); CALCIUM 8.8 mg/dL (8.4-10.2); CARBON DIOXIDE 34 mmol/L (22-30); CHLORIDE 97 mmol/L (98-107); CREATININE, serum 0.83 mg/dL (0.52-1.25); GLUCOSE 85 mg/dL (74-106); POTASSIUM 4.3 mmol/L (3.4-5.0); SODIUM 138 mmol/L (137-145); TOTAL PROTEIN 6.9 gm/dL (6.4-8.2)
[2016-12-03 13:58] LABS: PROTHROMBIN TIME 11.1 SECONDS (9.7-12.8)
[2016-12-03 14:00] LABS: B-TYPE NATRIURETIC PEPTIDE 275 pg/mL (0-125)
[2016-12-03 14:01] LABS: PARTIAL THROMBOPLASTIN TIME 30.8 SECONDS (26.0-37.0)
[2016-12-03 14:04] LABS: TROPONIN-I < 0.012 ng/mL (0.000-0.034)
[2016-12-03] MEDS ORDERED: COZAAR 50MG50 MG/TAB PO (14:12)
[2016-12-03 16:58] VITALS: BP 142/66; PULSE 76
== END 2016-12-03 17:05 | disposition home or self-care (01) ==
LOC: COL.ER 13:15
PROVIDERS: Emergency Medicine
DX: R00.2 Palpitations (principal); R07.89 Other chest pain; G20 Parkinson's disease; J44.9 Chronic obstructive pulmonary disease, unspecified; I42.9 Cardiomyopathy, unspecified; Z79.82 Long term (current) use of aspirin

== ENCOUNTER 2016-12-29 06:25 | Day surgery (SDC) | payer MEDICARE ==
[2016-12-29] VITALS (11 sets, daily range): BP systolic 100–142; BP diastolic 60–105; PULSE 67–90; TEMP 97.5–98.9
[~2016-12-29] VITALS: Ht 170.3 cm; Wt 84.9 kg
[~2016-12-29 06:25] MED LIST changes: -WELLBUTRIN 75MG75 MG PO; +WELLBUTRIN XL150 MG PO
[2016-12-29 06:55] LABS: HEMATOCRIT 38.3 % (37.0-47.0); HEMOGLOBIN 12.5 g/dl (12.5-16.0); MEAN CELL VOLUME 91 fl (80.0-100.0); MEAN CORPUSCULAR HEMOGLOBIN 30 pg (27.0-31.0); MEAN CORPUSCULAR HGB CONC 33 g/dl (33.0-37.0); MEAN PLATELET VOLUME 9.7 fl (7.4-10.4); PLATELET COUNT 247 K/mm3 (130-400); RED BLOOD COUNT 4.22 M/mm3 (4.10-5.30); WHITE BLOOD COUNT 6.1 K/mm3 (4.8-10.8)
[2016-12-29 07:08] LABS: CALCIUM 9.2 mg/dL (8.4-10.2); CREATININE, serum 1.04 mg/dL (0.52-1.25); POTASSIUM 4.2 mmol/L (3.4-5.0)
[2016-12-29 07:31] LABS: PROTHROMBIN TIME 11.1 SECONDS (9.7-12.8)
[2016-12-29] MEDS ORDERED: FLEXERIL 1010 MG/TAB PO (07:31)
[2016-12-29] MEDS ORDERED: LANOXIN 0.120.125 MG PO (07:33)
[2016-12-29] MEDS ORDERED: PROAIR HFA0.09 MG/AC IH (07:43)
[2016-12-29] MEDS ORDERED: CYMBALTA 60MG60 MG PO (07:44)
[2016-12-29] MEDS ORDERED: LASIX 40MG TABL40 MG PO (07:45)
[2016-12-29] MEDS ORDERED: K-DUR20 MEQ PO (07:55)
[2016-12-29] MEDS ORDERED: NITROSTAT0.4 MG/TAB SL (08:02)
[2016-12-29] MEDS ORDERED: NYSTATIN POWDER15 GM TOP (08:03)
[2016-12-29] MEDS ORDERED: TRIAMCINOLONE A15 G3 TP (08:04)
[2016-12-30 00:54] VITALS: BP 124/74; PULSE 68
[2016-12-30 03:38] VITALS: PULSE 80
[2016-12-30 07:31] VITALS: BP 129/70; PULSE 79; TEMP 97.5
[2016-12-30 11:39] VITALS: BP 92/40; PULSE 86; TEMP 97.6
== END 2016-12-30 13:45 | disposition home or self-care (01) ==
LOC: COL.CAR 06:25 → PEDS 10:44 → COL.CAR 12-30 13:45
PROVIDERS: Internal Medicine Cardiovascular Disease
DX: I42.9 Cardiomyopathy, unspecified (principal); J44.9 Chronic obstructive pulmonary disease, unspecified; I25.10 Atherosclerotic heart disease of native coronary artery without angina pectoris; I34.0 Nonrheumatic mitral (valve) insufficiency
CPT/HCPCS: OP; C1721; C1777; C1894; C1898; J2250; J3010; J3370; J7030; J7050

== ENCOUNTER → 2017-04-16 | Outpatient (CLI) | payer MEDICARE ==
[~2017-04-16] MED LIST changes: +K-DUR20 MEQ PO; +NITROSTAT0.4 MG/TAB SL; +NYSTATIN POWDER15 GM TOP; +TRIAMCINOLONE A15 G3 TP
== END ==
LOC: COL.RAD 11:00
DX: M47.812 Spondylosis without myelopathy or radiculopathy, cervical region (principal); M48.02 Spinal stenosis, cervical region; M46.82 Other specified inflammatory spondylopathies, cervical region; J98.4 Other disorders of lung; Z98.1 Arthrodesis status; Z96.89 Presence of other specified functional implants

== ENCOUNTER → 2017-05-11 | Outpatient (CLI) | payer MEDICARE ==
[2017-05-11 11:47] LABS: BASO # 0.1 (0.0-0.2); EOS # 0.1 (0.0-0.7); EOS % 2.2 % (0-4.0); GRAN # 3.3 (1.4-6.5); GRAN % 55.8 % (42.2-75.2); HEMATOCRIT 40.6 % (37.0-47.0); HEMOGLOBIN 13.2 g/dl (12.5-16.0); LYMPH # 1.8 (1.2-3.4); LYMPH % 30.3 % (20.0-51.0); MEAN CELL VOLUME 86 fl (80.0-100.0); MEAN CORPUSCULAR HEMOGLOBIN 28 pg (27.0-31.0); MEAN CORPUSCULAR HGB CONC 33 g/dl (33.0-37.0); MEAN PLATELET VOLUME 9.5 fl (7.4-10.4); MONO # 0.6 (0.1-0.6); MONO % 10.5 % (1.7-9.3); PLATELET COUNT 261 K/mm3 (130-400); RED BLOOD COUNT 4.72 M/mm3 (4.10-5.30)
[2017-05-11 11:48] LABS: PROTHROMBIN TIME 11.2 SECONDS (9.7-12.8)
[2017-05-11 11:51] LABS: PARTIAL THROMBOPLASTIN TIME 31.9 SECONDS (26.0-37.0)
[2017-05-11 12:00] LABS: ALBUMIN 3.8 gm/dL (3.5-5.0); BILIRUBIN,TOTAL 0.4 mg/dL (0.0-1.0); CREATININE, serum 0.8 mg/dL (0.52-1.25); POTASSIUM 4.4 mmol/L (3.4-5.0); TOTAL PROTEIN 6.6 gm/dL (6.4-8.2)
[2017-05-12 12:19] LABS: COLLECTION METHOD CLEAN CATCH
[2017-05-12 12:28] LABS: PH 6 (5-8); SQUAMOUS EPITHELIAL 0-2 /hpf; URINE APPEARANCE Clear; URINE BACTERIA None Seen /hpf; URINE BILIRUBIN Negative (NEGATIVE); URINE BLOOD Negative (NEGATIVE); URINE COLOR Straw; URINE GLUCOSE Negative (NEGATIVE); URINE KETONE Negative (NEGATIVE); URINE LEUKOCYTE ESTERASE Negative (NEGATIVE); URINE NITRATE Negative (NEGATIVE); URINE PROTEIN(semi-quant) Negative (NEGATIVE); URINE RBC 0-2 /hpf; URINE UROBILINOGEN Negative (NEGATIVE)
== END ==
LOC: COL.LAB 10:50
DX: Z01.812 Encounter for preprocedural laboratory examination (principal); M96.1 Postlaminectomy syndrome, not elsewhere classified

== ENCOUNTER 2017-05-28 09:59 | Outpatient (CLI) | payer MEDICARE ==
[~2017-05-28] VITALS: Ht 170.3 cm; Wt 78.7 kg
[2017-05-28] VITALS (7 sets, daily range): BP systolic 95–111; BP diastolic 53–83; PULSE 60–85; TEMP 97.9
[~2017-05-28 09:59] MED LIST changes: +SENNA8.6 MG PO; +ZANAFLEX 4MG TAB4 MG PO
[2017-05-28] MEDS ORDERED: PRILOSEC 20MG20 MG PO (10:33)
== END 2017-05-28 13:39 | disposition home or self-care (01) ==
LOC: COL.RAD 09:59
DX: M51.26 Other intervertebral disc displacement, lumbar region (principal); M48.8X6 Other specified spondylopathies, lumbar region
CPT/HCPCS: Q9965

== ENCOUNTER 2017-05-30 15:24 | Emergency (ER) | payer MEDICARE ==
[~2017-05-30] VITALS: Ht 170.2 cm; Wt 75.0 kg
[~2017-05-30 15:24] MED LIST changes: +PRILOSEC 20MG20 MG PO
[2017-05-30 15:29] VITALS: TEMP 98.2
[2017-05-30 16:30] LABS: BASO % 0.6 % (0.0-2.0); EOS # 0.1 (0.0-0.7); EOS % 1.8 % (0-4.0); GRAN # 3.9 (1.4-6.5); GRAN % 57.8 % (42.2-75.2); HEMATOCRIT 37.8 % (37.0-47.0); HEMOGLOBIN 12.6 g/dl (12.5-16.0); LYMPH # 1.9 (1.2-3.4); LYMPH % 28.4 % (20.0-51.0); MEAN CELL VOLUME 84 fl (80.0-100.0); MEAN CORPUSCULAR HEMOGLOBIN 28 pg (27.0-31.0); MEAN CORPUSCULAR HGB CONC 33 g/dl (33.0-37.0); MEAN PLATELET VOLUME 9.6 fl (7.4-10.4); MONO # 0.8 (0.1-0.6); MONO % 11.4 % (1.7-9.3); PLATELET COUNT 243 K/mm3 (130-400); RED BLOOD COUNT 4.49 M/mm3 (4.10-5.30); REDCELL DISTRIBUTION WIDTH-CV 14.2 % (11.5-14.5)
[2017-05-30 16:56] LABS: ERYTHROCYTE SEDIMENTATION RATE 13 mm/hr (0-30)
[2017-05-30 17:23] VITALS: BP 164/90; PULSE 62
== END 2017-05-30 17:24 | disposition home or self-care (01) ==
LOC: COL.ER 15:24
PROVIDERS: Family Medicine
DX: G89.29 Other chronic pain (principal); M54.5 Low back pain; I10 Essential (primary) hypertension; I25.10 Atherosclerotic heart disease of native coronary artery without angina pectoris; J44.9 Chronic obstructive pulmonary disease, unspecified; K21.9 Gastro-esophageal reflux disease without esophagitis; Z87.891 Personal history of nicotine dependence; Z79.82 Long term (current) use of aspirin; Z79.51 Long term (current) use of inhaled steroids
CPT/HCPCS: J1170; J2550; J7030

== ENCOUNTER → 2017-11-25 | Outpatient (CLI) | payer MEDICARE | LOC: COL.RAD 06:35 | DX: M51.36 Other intervertebral disc degeneration, lumbar region (principal); M48.061 Spinal stenosis, lumbar region without neurogenic claudication; M96.1 Postlaminectomy syndrome, not elsewhere classified; Z96.89 Presence of other specified functional implants | CPT/HCPCS: Q9967 ==

== ENCOUNTER 2017-11-30 13:42 | Outpatient (CLI) | payer MEDICARE ==
[2017-11-30] VITALS (7 sets, daily range): BP systolic 105–136; BP diastolic 70–87; PULSE 60–79; TEMP 97.6–98.6
[~2017-11-30] VITALS: Ht 170.2 cm; Wt 68.0 kg
[2017-11-30 15:23] LABS: GLUCOSE,CSF 48 mg/dL (40-70); TOTAL PROTEIN,CSF 46 mg/dL (15-45)
[2017-11-30 16:13] LABS: CSF APPEARANCE CLEAR; CSF COLOR COLORLESS
[2017-11-30 16:14] LABS: CSF MONONUCLEAR 95 % (70-100); CSF POLYMORPHONUCLEAR 5 % (0-6); CSF RBC 33 /mm3 (0-0)
== END 2017-11-30 17:59 | disposition home or self-care (01) ==
LOC: COL.RAD 13:42
PROVIDERS: Psychiatry & Neurology Neurology
DX: M54.41 Lumbago with sciatica, right side (principal); R29.898 Other symptoms and signs involving the musculoskeletal system

== ENCOUNTER 2017-12-04 12:45 | Emergency (ER) | payer MEDICARE ==
[~2017-12-04] VITALS: Ht 170.2 cm; Wt 66.4 kg
[2017-12-04 12:50] VITALS: BP 122/76; TEMP 98.5
[2017-12-04] MEDS ORDERED: DILAUDID 2MG TAB2 MG PO (15:29)
[2017-12-04] MEDS ORDERED: LIDODERM 5% PATC1 EA TP (15:29)
[2017-12-04] MEDS ORDERED: MEDROL 4MG DOSPA4 MG PO (15:29)
[2017-12-04 15:59] VITALS: PULSE 78
== END 2017-12-04 16:02 | disposition home or self-care (01) ==
LOC: COL.ER 12:45
DX: M51.36 Other intervertebral disc degeneration, lumbar region (principal); M54.41 Lumbago with sciatica, right side; G89.29 Other chronic pain; I50.9 Heart failure, unspecified; G20 Parkinson's disease; F17.210 Nicotine dependence, cigarettes, uncomplicated; Z79.82 Long term (current) use of aspirin; Z79.899 Other long term (current) drug therapy; Z95.0 Presence of cardiac pacemaker
CPT/HCPCS: J1170; J2550

== ENCOUNTER → 2017-12-07 | Outpatient (CLI) | payer MEDICARE ==
[~2017-12-07] MED LIST changes: +DILAUDID 2MG TAB2 MG PO; +LIDODERM 5% PATC1 EA TP
== END ==
LOC: MC.RAD 10:13
DX: Z12.31 Encounter for screening mammogram for malignant neoplasm of breast (principal); Z95.0 Presence of cardiac pacemaker

== ENCOUNTER → 2018-01-07 | Outpatient (CLI) | payer MEDICARE | LOC: COL.VAS 08:00 | DX: Z01.810 Encounter for preprocedural cardiovascular examination (principal); I25.10 Atherosclerotic heart disease of native coronary artery without angina pectoris; I50.22 Chronic systolic (congestive) heart failure; I34.0 Nonrheumatic mitral (valve) insufficiency; I31.3 Pericardial effusion (noninflammatory); I07.1 Rheumatic tricuspid insufficiency ==

== ENCOUNTER 2018-01-13 08:07 | Day surgery (SDC) | payer MEDICARE ==
[~2018-01-13] VITALS: Ht 167.6 cm; Wt 67.7 kg
[2018-01-13] VITALS (11 sets, daily range): BP systolic 91–109; BP diastolic 52–86; PULSE 59–89; TEMP 97.6–98.5
[~2018-01-13 08:07] MED LIST changes: -COREG 6.256.25 MG/TA PO; +COREG12.5 MG PO; +NEURONTIN300 MG/CAP PO; -NEURONTIN600 MG/TAB PO; +SENNA-LAX8.6 MG PO; -SENNA8.6 MG PO
[2018-01-13] MEDS ORDERED: CORICIDIN COUGH1 TAB PO (09:30)
[2018-01-13] MEDS ORDERED: TYLENOL 500MG500 MG PO (09:31)
[2018-01-13] MEDS ORDERED: BACTRIM DS 8001 TAB PO (09:31)
[2018-01-13] MEDS ORDERED: NYSTATIN OR100 MU/ML PO (09:32)
[2018-01-14 04:29] VITALS: BP 107/63; PULSE 66; TEMP 98.5
[2018-01-14] MEDS ORDERED: ASPI325T6 PO (07:52)
[2018-01-14] MEDS ORDERED: NORCO 325 MG-7.1 TAB PO (07:53)
[2018-01-14] MEDS ORDERED: ROXICODONE 55 MG/TAB PO (07:54)
[2018-01-14] MEDS ORDERED: PROTONIX 40MG T40 MG PO (07:57)
[2018-01-14 08:00] VITALS: BP 115/78; PULSE 62; TEMP 97.5
== END 2018-01-14 10:50 | disposition home or self-care (01) ==
LOC: SDCO 08:07 → SURG 11:47 → SDCO 14:45
DX: M70.61 Trochanteric bursitis, right hip (principal); M76.31 Iliotibial band syndrome, right leg; D64.9 Anemia, unspecified; J45.909 Unspecified asthma, uncomplicated; I11.0 Hypertensive heart disease with heart failure; I50.9 Heart failure, unspecified; J44.9 Chronic obstructive pulmonary disease, unspecified; F32.9 Major depressive disorder, single episode, unspecified; E78.00 Pure hypercholesterolemia, unspecified; E78.5 Hyperlipidemia, unspecified; G20 Parkinson's disease; F17.210 Nicotine dependence, cigarettes, uncomplicated; Z91.81 History of falling; Z90.49 Acquired absence of other specified parts of digestive tract; Z95.0 Presence of cardiac pacemaker; Z88.1 Allergy status to other antibiotic agents; Z88.0 Allergy status to penicillin; Z88.7 Allergy status to serum and vaccine; Z88.6 Allergy status to analgesic agent; Z91.030 Bee allergy status; Z91.048 Other nonmedicinal substance allergy status; Z82.49 Family history of ischemic heart disease and other diseases of the circulatory system; Z82.61 Family history of arthritis; Z80.0 Family history of malignant neoplasm of digestive organs; Z80.42 Family history of malignant neoplasm of prostate
CPT/HCPCS: OP; G8978-GP; G8979-GP; G8987-GO; G8988-GO; J2250; J2704; J7120

== ENCOUNTER 2018-03-09 14:55 | Emergency (ER) | payer MEDICARE ==
[~2018-03-09] VITALS: Ht 170.2 cm; Wt 62.7 kg
[~2018-03-09 14:55] MED LIST changes: +ASPI325T6 PO; +CORICIDIN COUGH1 TAB PO; +NORCO 325 MG-7.1 TAB PO; +NYSTATIN OR100 MU/ML PO; +PROTONIX 40MG T40 MG PO; +TYLENOL 500MG500 MG PO
[2018-03-09 15:03] VITALS: TEMP 98.1
[2018-03-09 15:28] LABS: BASO % 0.4 % (0.0-2.0); EOS # 0.1 (0.0-0.7); EOS % 1.2 % (0-4.0); GRAN # 5.2 (1.4-6.5); HEMATOCRIT 41.2 % (37.0-47.0); HEMOGLOBIN 13.8 g/dl (12.5-16.0); LYMPH # 2.1 (1.2-3.4); LYMPH % 25.6 % (20.0-51.0); MEAN CELL VOLUME 94 fl (80.0-100.0); MEAN CORPUSCULAR HEMOGLOBIN 31 pg (27.0-31.0); MEAN CORPUSCULAR HGB CONC 34 g/dl (33.0-37.0); MEAN PLATELET VOLUME 9.4 fl (7.4-10.4); MONO # 0.7 (0.1-0.6); MONO % 8.6 % (1.7-9.3); PLATELET COUNT 238 K/mm3 (130-400); REDCELL DISTRIBUTION WIDTH-CV 13.3 % (11.5-14.5)
[2018-03-09 15:33] LABS: PROTHROMBIN TIME 11.8 SECONDS (9.7-12.8)
[2018-03-09 15:37] LABS: ALANINE AMINOTRANSFERASE 22 U/L (9-52); ALKALINE PHOSPHATASE 58 U/L (50-136); ANION GAP 6 mmol/L (7-16); AST,SGOT 21 U/L (15-37); BILIRUBIN,TOTAL 0.4 mg/dL (0.0-1.0); BLOOD UREA NITROGEN 19 mg/dL (7-17); CALCIUM 9.2 mg/dL (8.4-10.2); CARBON DIOXIDE 30 mmol/L (22-30); CHLORIDE 101 mmol/L (98-107); CREATINE KINASE 52 U/L (30-135); CREATININE, serum 0.65 mg/dL (0.52-1.25); GLUCOSE 105 mg/dL (74-106); LIPASE 83 U/L (23-300); POTASSIUM 3.6 mmol/L (3.4-5.0); SODIUM 138 mmol/L (137-145); TOTAL PROTEIN 6.6 gm/dL (6.4-8.2)
[2018-03-09] MEDS ORDERED: PRIL40 PO (15:49)
[2018-03-09] MEDS ORDERED: ASPIRIN 81M81 MG/TA2 PO (15:50)
[2018-03-09] MEDS ORDERED: TYLENOL W/COD1 UDTAB PO (15:52)
[2018-03-09 16:04] LABS: TROPONIN-I < 0.012 ng/mL (0.000-0.035)
[2018-03-09 19:23] VITALS: BP 145/86; PULSE 66
== END 2018-03-09 19:25 | disposition home or self-care (01) ==
LOC: COL.ER 14:55
PROVIDERS: Emergency Medicine
DX: R07.89 Other chest pain (principal); J44.9 Chronic obstructive pulmonary disease, unspecified; F17.210 Nicotine dependence, cigarettes, uncomplicated; G20 Parkinson's disease; Z90.89 Acquired absence of other organs; Z98.890 Other specified postprocedural states; Z95.0 Presence of cardiac pacemaker

== ENCOUNTER 2018-03-23 07:03 | Day surgery (SDC) | payer MEDICARE ==
[~2018-03-23] VITALS: Ht 167.6 cm; Wt 65.5 kg
[~2018-03-23 07:03] MED LIST changes: -INCRUSE EL62.5 MCG/A IH; +TRELEGY ELLIPT1 EACH IH; +TYLENOL W/COD1 UDTAB PO
[2018-03-23] MEDS ORDERED: METROGEL GEL45 GM TP (07:25)
[2018-03-23] MEDS ORDERED: VALIUM 2MG T2 MG/TAB PO (07:26)
[2018-03-23] MEDS ORDERED: ROXICODONE 55 MG/TAB PO (07:27)
[2018-03-23 08:05] VITALS: BP 129/82; PULSE 78; TEMP 98
[2018-03-23] MEDS ORDERED: BENTYL 10MG10 MG/CAP PO (09:01)
[2018-03-23 09:10] VITALS: BP 144/77; PULSE 71; TEMP 98.4
--- NOTE | 2018-03-23 09:10 | NUR ---
Pt to GI bay 1 via cart from ENDO. Pt awake and alert. Pt ambulates to recliner with stand by assistance. Pt denies pain or nausea. Muffin and coffee given. Call light within reach. Will continue to monitor. Call light within reach.
[2018-03-23 09:25] VITALS: BP 150/85; PULSE 64
--- NOTE | 2018-03-23 09:25 | NUR ---
Pt tolerating food and fluids without difficulties. Will continue to monitor. in room. Call light within reach.
[2018-03-23 09:40] VITALS: BP 144/77; PULSE 65
[2018-03-23 09:55] VITALS: BP 109/77; PULSE 65
--- NOTE | 2018-03-23 09:55 | NUR ---
Discharge intructions reviewed. Pt voices understanding. IV site discontinued with all parts intact. Pt up to dress. Call light within reach.
--- NOTE | 2018-03-23 10:05 | NUR ---
Pt escorted to private car via wheel chair. Pt accompanied home by her .
== END 2018-03-23 10:05 | disposition home or self-care (01) ==
LOC: SDCO 07:03
DX: D12.3 Benign neoplasm of transverse colon (principal); D12.4 Benign neoplasm of descending colon; K57.30 Diverticulosis of large intestine without perforation or abscess without bleeding; K64.0 First degree hemorrhoids; K63.89 Other specified diseases of intestine; R19.7 Diarrhea, unspecified; K59.00 Constipation, unspecified; I42.9 Cardiomyopathy, unspecified; I11.0 Hypertensive heart disease with heart failure; I50.9 Heart failure, unspecified; D64.9 Anemia, unspecified; J44.9 Chronic obstructive pulmonary disease, unspecified; K21.9 Gastro-esophageal reflux disease without esophagitis; M19.90 Unspecified osteoarthritis, unspecified site; G89.29 Other chronic pain; Z90.49 Acquired absence of other specified parts of digestive tract; Z95.810 Presence of automatic (implantable) cardiac defibrillator; Z88.1 Allergy status to other antibiotic agents; Z88.0 Allergy status to penicillin; Z88.7 Allergy status to serum and vaccine; Z88.8 Allergy status to other drugs, medicaments and biological substances; Z86.010 Personal history of colon polyps; Z87.891 Personal history of nicotine dependence
CPT/HCPCS: J2704; J7120

== ENCOUNTER 2018-05-01 11:25 | Emergency (ER) | payer MEDICARE ==
[~2018-05-01] VITALS: Ht 170.2 cm; Wt 62.7 kg
[~2018-05-01 11:25] MED LIST changes: +BENTYL 10MG10 MG/CAP PO; +METROGEL GEL45 GM TP
[2018-05-01 11:28] VITALS: TEMP 97.7
[2018-05-01] MEDS ORDERED: NORCO 325 MG-51 TAB PO (11:54)
[2018-05-01] MEDS ORDERED: MEDROL 4MG DOSPA4 MG PO (13:11)
[2018-05-01 14:07] VITALS: BP 122/72; PULSE 62
== END 2018-05-01 14:25 | disposition home or self-care (01) ==
LOC: COL.ER 11:25
DX: M54.12 Radiculopathy, cervical region (principal); Z79.51 Long term (current) use of inhaled steroids; Z79.82 Long term (current) use of aspirin
CPT/HCPCS: J1100; J1170; J2550; J7040

== ENCOUNTER → 2018-06-26 | Emergency (ER) | payer MEDICARE ==
[~2018-06-26] VITALS: Ht 170.2 cm; Wt 64.1 kg
[~2018-06-26] MED LIST changes: +CLEOCIN HCL300 MG PO
[2018-06-26 11:17] VITALS: BP 160/94; PULSE 76; TEMP 98.3
[2018-06-26 12:42] LABS: BASO % 0.4 % (0.0-2.0); EOS # 0.1 (0.0-0.7); EOS % 1.2 % (0-4.0); GRAN # 5.8 (1.4-6.5); GRAN % 69.7 % (42.2-75.2); HEMATOCRIT 38.6 % (37.0-47.0); HEMOGLOBIN 12.8 g/dl (12.5-16.0); LYMPH # 1.5 (1.2-3.4); LYMPH % 18.4 % (20.0-51.0); MEAN CELL VOLUME 93 fl (80.0-100.0); MEAN CORPUSCULAR HEMOGLOBIN 31 pg (27.0-31.0); MEAN CORPUSCULAR HGB CONC 33 g/dl (33.0-37.0); MEAN PLATELET VOLUME 9.5 fl (7.4-10.4); MONO # 0.8 (0.1-0.6); MONO % 9.8 % (1.7-9.3); PLATELET COUNT 246 K/mm3 (130-400); RED BLOOD COUNT 4.16 M/mm3 (4.10-5.30); REDCELL DISTRIBUTION WIDTH-CV 12.8 % (11.5-14.5)
[2018-06-26 13:00] LABS: ALANINE AMINOTRANSFERASE 13 U/L (9-52); ALBUMIN 3.7 gm/dL (3.5-5.0); ALKALINE PHOSPHATASE 73 U/L (50-136); ANION GAP 7 mmol/L (7-16); AST,SGOT 24 U/L (15-37); BILIRUBIN,TOTAL 0.3 mg/dL (0.0-1.0); BLOOD UREA NITROGEN 17 mg/dL (7-17); C-REACTIVE PROTEIN 7.3 mg/dL (0.0-0.9); CALCIUM 9.3 mg/dL (8.4-10.2); CARBON DIOXIDE 32 mmol/L (22-30); CHLORIDE 100 mmol/L (98-107); CREATININE, serum 0.55 (0.52-1.25); GLUCOSE 90 mg/dL (74-106); POTASSIUM 3.9 mmol/L (3.4-5.0); SODIUM 140 mmol/L (137-145); TOTAL PROTEIN 6.7 gm/dL (6.4-8.2)
[2018-06-26 13:11] LABS: TROPONIN-I < 0.012 ng/mL (0.000-0.035)
[2018-06-26 13:20] LABS: COLLECTION METHOD CLEAN CATCH
[2018-06-26 13:38] LABS: MUCOUS Present /lpf; PH 6 (5-8); SQUAMOUS EPITHELIAL 0-2 /hpf; URINE APPEARANCE Hazy; URINE BACTERIA None Seen /hpf; URINE BILIRUBIN Negative (NEGATIVE); URINE BLOOD Negative (NEGATIVE); URINE COLOR Yellow; URINE GLUCOSE Negative (NEGATIVE); URINE KETONE Trace (NEGATIVE); URINE LEUKOCYTE ESTERASE Negative (NEGATIVE); URINE NITRATE Negative (NEGATIVE); URINE PROTEIN(semi-quant) 1+ (NEGATIVE); URINE UROBILINOGEN Negative (NEGATIVE)
== END ==
LOC: COL.ER 11:14
PROVIDERS: Emergency Medicine
DX: J44.1 Chronic obstructive pulmonary disease with (acute) exacerbation (principal); J20.9 Acute bronchitis, unspecified; I50.9 Heart failure, unspecified; F17.210 Nicotine dependence, cigarettes, uncomplicated; Z79.51 Long term (current) use of inhaled steroids; Z79.82 Long term (current) use of aspirin
CPT/HCPCS: J2930

== ENCOUNTER 2018-07-09 14:38 | Emergency (ER) | payer MEDICARE ==
[~2018-07-09] VITALS: Ht 170.2 cm; Wt 62.3 kg
[2018-07-09 14:46] VITALS: TEMP 98.6
[2018-07-09] MEDS ORDERED: MEDROL 4MG DOSPA4 MG PO (16:20)
[2018-07-09] MEDS ORDERED: FLEXERIL 1010 MG/TAB PO (17:21)
[2018-07-09 17:36] VITALS: BP 107/62; PULSE 74
== END 2018-07-09 17:38 | disposition home or self-care (01) ==
LOC: COL.ER 14:38
DX: M54.41 Lumbago with sciatica, right side (principal); G20 Parkinson's disease; J44.9 Chronic obstructive pulmonary disease, unspecified; F17.210 Nicotine dependence, cigarettes, uncomplicated; Z98.890 Other specified postprocedural states; Z90.49 Acquired absence of other specified parts of digestive tract; Z95.0 Presence of cardiac pacemaker; Z79.51 Long term (current) use of inhaled steroids; Z79.82 Long term (current) use of aspirin
CPT/HCPCS: J1170; J1885

== ENCOUNTER → 2018-08-25 | Outpatient (CLI) | payer MEDICARE | LOC: COL.RAD 12:46 | DX: K76.9 Liver disease, unspecified (principal); I70.0 Atherosclerosis of aorta; Z90.49 Acquired absence of other specified parts of digestive tract | CPT/HCPCS: Q9967 ==

== ENCOUNTER → 2018-10-19 | Outpatient (CLI) | payer MEDICARE | LOC: SUN.CLI 13:51 | DX: Z76.89 Persons encountering health services in other specified circumstances (principal); J44.1 Chronic obstructive pulmonary disease with (acute) exacerbation; E78.5 Hyperlipidemia, unspecified; E66.9 Obesity, unspecified; Z71.3 Dietary counseling and surveillance ==

== ENCOUNTER 2018-11-02 13:08 | Emergency (ER) | payer MEDICARE ==
[~2018-11-02] VITALS: Ht 170.2 cm; Wt 77.3 kg
[2018-11-02 13:15] VITALS: BP 133/114; PULSE 81
[2018-11-02 13:25] LABS: BASO % 0.4 % (0.0-2.0); EOS # 0.2 (0.0-0.7); GRAN # 4.9 (1.4-6.5); GRAN % 64.2 % (42.2-75.2); HEMATOCRIT 39.2 % (37.0-47.0); HEMOGLOBIN 12.5 g/dl (12.5-16.0); LYMPH # 1.8 (1.2-3.4); LYMPH % 23.5 % (20.0-51.0); MEAN CELL VOLUME 96 fl (80.0-100.0); MEAN CORPUSCULAR HEMOGLOBIN 31 pg (27.0-31.0); MEAN CORPUSCULAR HGB CONC 32 g/dl (33.0-37.0); MEAN PLATELET VOLUME 9.2 fl (7.4-10.4); MONO # 0.7 (0.1-0.6); MONO % 9.6 % (1.7-9.3); PLATELET COUNT 211 K/mm3 (130-400); RED BLOOD COUNT 4.07 M/mm3 (4.10-5.30); REDCELL DISTRIBUTION WIDTH-CV 12.6 % (11.5-14.5)
[2018-11-02] MEDS ORDERED: [UNRECOGNIZED DRUG - REMARK] PO (13:27)
[2018-11-02] MEDS ORDERED: CLEOCIN HCL300 MG PO (13:28)
[2018-11-02] MEDS ORDERED: VALIUM 2MG T2 MG/TAB PO (13:29)
[2018-11-02] MEDS ORDERED: NEURONTIN600 MG/TAB PO (13:31)
[2018-11-02] MEDS ORDERED: LIDODERM 5% PATC1 EA TP (13:32)
[2018-11-02 13:37] LABS: ALANINE AMINOTRANSFERASE 18 U/L (9-52); ALBUMIN 3.6 gm/dL (3.5-5.0); ALKALINE PHOSPHATASE 48 U/L (50-136); ANION GAP 6 mmol/L (7-16); AST,SGOT 20 U/L (15-37); BILIRUBIN,TOTAL 0.3 mg/dL (0.0-1.0); BLOOD UREA NITROGEN 19 mg/dL (7-17); CALCIUM 8.4 mg/dL (8.4-10.2); CARBON DIOXIDE 36 mmol/L (22-30); CHLORIDE 99 mmol/L (98-107); CREATININE, serum 0.73 (0.52-1.25); GLUCOSE 82 mg/dL (74-106); POTASSIUM 3.8 mmol/L (3.4-5.0); SODIUM 140 mmol/L (137-145); TOTAL PROTEIN 5.9 gm/dL (6.4-8.2)
[2018-11-02 13:56] LABS: TROPONIN-I < 0.012 ng/mL (0.000-0.035)
[2018-11-02] MEDS ORDERED: PREDNISONE20 MG PO (15:08)
[2018-11-02 16:03] VITALS: TEMP 98.6
== END 2018-11-02 16:09 | disposition home or self-care (01) ==
LOC: COL.ER 13:08
PROVIDERS: Emergency Medicine
DX: J44.1 Chronic obstructive pulmonary disease with (acute) exacerbation (principal); I50.9 Heart failure, unspecified; F17.210 Nicotine dependence, cigarettes, uncomplicated; Z79.01 Long term (current) use of anticoagulants
CPT/HCPCS: J2930

== ENCOUNTER 2019-01-10 16:27 | Emergency (ER) | payer MEDICARE ==
[~2019-01-10] VITALS: Ht 170.2 cm; Wt 64.5 kg
[~2019-01-10 16:27] MED LIST changes: +NEURONTIN600 MG/TAB PO; +[UNRECOGNIZED DRUG - REMARK] PO
[2019-01-10 17:09] LABS: BASO # 0.1 (0.0-0.2); BASO % 0.7 % (0.0-2.0); EOS # 0.1 (0.0-0.7); EOS % 1.9 % (0-4.0); GRAN # 4.4 (1.4-6.5); GRAN % 61.2 % (42.2-75.2); HEMATOCRIT 42.4 % (37.0-47.0); HEMOGLOBIN 13.8 g/dl (12.5-16.0); LYMPH % 27.5 % (20.0-51.0); MEAN CELL VOLUME 94 fl (80.0-100.0); MEAN CORPUSCULAR HEMOGLOBIN 31 pg (27.0-31.0); MEAN CORPUSCULAR HGB CONC 33 g/dl (33.0-37.0); MEAN PLATELET VOLUME 9.5 fl (7.4-10.4); MONO # 0.6 (0.1-0.6); MONO % 8.4 % (1.7-9.3); PLATELET COUNT 215 K/mm3 (130-400); RED BLOOD COUNT 4.52 M/mm3 (4.10-5.30); REDCELL DISTRIBUTION WIDTH-CV 13.1 % (11.5-14.5)
[2019-01-10 17:23] LABS: ALANINE AMINOTRANSFERASE 23 U/L (9-52); ALBUMIN 4.1 gm/dL (3.5-5.0); ALKALINE PHOSPHATASE 51 U/L (50-136); ANION GAP 7 mmol/L (7-16); AST,SGOT 29 U/L (15-37); BILIRUBIN,TOTAL 0.4 mg/dL (0.0-1.0); BLOOD UREA NITROGEN 21 mg/dL (7-17); CALCIUM 8.8 mg/dL (8.4-10.2); CARBON DIOXIDE 31 mmol/L (22-30); CHLORIDE 100 mmol/L (98-107); GLUCOSE 133 mg/dL (74-106); LIPASE 48 U/L (23-300); POTASSIUM 3.8 mmol/L (3.4-5.0); SODIUM 137 mmol/L (137-145); TOTAL PROTEIN 6.6 gm/dL (6.4-8.2)
[2019-01-10 17:24] LABS: C-REACTIVE PROTEIN < 0.5 mg/dL (0.0-0.9)
[2019-01-10 17:28] LABS: COLLECTION METHOD CLEAN CATCH
[2019-01-10 17:33] LABS: PH 6 (5-8); SQUAMOUS EPITHELIAL 0-2 /hpf; URINE APPEARANCE Clear; URINE BACTERIA None Seen /hpf; URINE BILIRUBIN Negative (NEGATIVE); URINE BLOOD Negative (NEGATIVE); URINE COLOR Yellow; URINE GLUCOSE Negative (NEGATIVE); URINE KETONE Negative (NEGATIVE); URINE LEUKOCYTE ESTERASE Negative (NEGATIVE); URINE NITRATE Negative (NEGATIVE); URINE PROTEIN(semi-quant) Negative (NEGATIVE); URINE RBC None Seen /hpf; URINE UROBILINOGEN Negative (NEGATIVE)
[2019-01-10 20:18] VITALS: BP 137/68; PULSE 82; TEMP 97.5
== END 2019-01-10 20:18 | disposition home or self-care (01) ==
LOC: COL.ER 16:27
PROVIDERS: Emergency Medicine
DX: R10.31 Right lower quadrant pain (principal); J44.9 Chronic obstructive pulmonary disease, unspecified; G20 Parkinson's disease; G89.4 Chronic pain syndrome; G90.50 Complex regional pain syndrome I, unspecified; I42.8 Other cardiomyopathies; F17.210 Nicotine dependence, cigarettes, uncomplicated; Z90.49 Acquired absence of other specified parts of digestive tract; Z90.89 Acquired absence of other organs; Z98.890 Other specified postprocedural states; Z79.82 Long term (current) use of aspirin; Z79.51 Long term (current) use of inhaled steroids; Z79.52 Long term (current) use of systemic steroids
CPT/HCPCS: J1170; J2060; J2405; J7030; Q9967

== ENCOUNTER → 2019-06-01 | Outpatient (CLI) | payer MEDICARE ==
[~2019-06-01] MED LIST changes: +ZITHROMAX Z PA250 MG PO
== END ==
LOC: COL.RAD 12:42
DX: G20 Parkinson's disease (principal); E55.9 Vitamin D deficiency, unspecified; Z96.82 Presence of neurostimulator; Z95.2 Presence of prosthetic heart valve; Z98.1 Arthrodesis status
CPT/HCPCS: Q9967

== ENCOUNTER 2019-06-23 13:05 | Outpatient (CLI) | payer MEDICARE ==
[2019-06-23] VITALS (7 sets, daily range): BP systolic 111–156; BP diastolic 58–96; PULSE 63–87
[~2019-06-23] VITALS: Ht 170.2 cm; Wt 64.5 kg
[~2019-06-23 13:05] MED LIST changes: +BENICAR 20MG TA20 MG PO; +D3-5050000 IU PO; +IRON PO; +VITAMINC500CH PO
== END 2019-06-24 11:32 | disposition home or self-care (01) ==
LOC: COL.RAD 13:05
DX: M48.02 Spinal stenosis, cervical region (principal); M43.22 Fusion of spine, cervical region; M47.812 Spondylosis without myelopathy or radiculopathy, cervical region; M89.38 Hypertrophy of bone, other site; Z98.890 Other specified postprocedural states
CPT/HCPCS: Q9967

== ENCOUNTER 2020-04-24 13:33 | Emergency (ER) | payer MEDICARE ==
[~2020-04-24] VITALS: Ht 170.2 cm; Wt 59.1 kg
[2020-04-24 13:40] VITALS: TEMP 99.3
[2020-04-24 14:44] LABS: BASO % 0.4 % (0.0-2.0); EOS # 0.1 (0.0-0.7); EOS % 1.3 % (0-4.0); GRAN # 5.4 (1.4-6.5); GRAN % 72.6 % (42.2-75.2); HEMATOCRIT 43.8 % (37.0-47.0); HEMOGLOBIN 14.7 g/dl (12.5-16.0); LYMPH # 1.3 (1.2-3.4); LYMPH % 18.1 % (20.0-51.0); MEAN CELL VOLUME 91 fl (80.0-100.0); MEAN CORPUSCULAR HEMOGLOBIN 30 pg (27.0-31.0); MEAN CORPUSCULAR HGB CONC 34 g/dl (33.0-37.0); MEAN PLATELET VOLUME 9.4 fl (7.4-10.4); MONO # 0.5 (0.1-0.6); MONO % 7.3 % (1.7-9.3); PLATELET COUNT 268 K/mm3 (130-400); RED BLOOD COUNT 4.83 M/mm3 (4.10-5.30); REDCELL DISTRIBUTION WIDTH-CV 11.9 % (11.5-14.5)
[2020-04-24] MEDS ORDERED: BENTYL 10MG10 MG/CAP PO (14:56)
[2020-04-24 14:57] LABS: ALANINE AMINOTRANSFERASE 12 U/L (4-34); ALBUMIN 4.2 gm/dL (3.5-5.0); ALKALINE PHOSPHATASE 77 U/L (50-136); ANION GAP 7 mmol/L (7-16); AST,SGOT 22 U/L (15-37); BILIRUBIN,TOTAL 0.8 mg/dL (0.0-1.0); BLOOD UREA NITROGEN 13 mg/dL (7-17); CALCIUM 9.1 mg/dL (8.4-10.2); CARBON DIOXIDE 33 mmol/L (22-30); CHLORIDE 98 mmol/L (98-107); GLUCOSE 92 mg/dL (74-106); SODIUM 138 mmol/L (137-145); TOTAL PROTEIN 7.1 gm/dL (6.4-8.2)
[2020-04-24] MEDS ORDERED: CARAFATE 1GM1 G PO (14:57)
[2020-04-24] MEDS ORDERED: REQUIP 1MG T1 MG/TAB PO (15:00)
[2020-04-24] MEDS ORDERED: CONSTULOSE 20G/30ML (15:01)
[2020-04-24 15:17] LABS: TROPONIN-I < 0.012 ng/mL (0.000-0.035)
[2020-04-24 15:36] VITALS: BP 140/73; PULSE 70
== END 2020-04-24 15:36 | disposition home or self-care (01) ==
LOC: COL.ER 13:33
PROVIDERS: Emergency Medicine
DX: J44.9 Chronic obstructive pulmonary disease, unspecified (principal); F17.210 Nicotine dependence, cigarettes, uncomplicated; Z86.16 Personal history of COVID-19; Z88.1 Allergy status to other antibiotic agents; Z88.0 Allergy status to penicillin; Z88.6 Allergy status to analgesic agent; Z79.82 Long term (current) use of aspirin

== ENCOUNTER → 2020-07-05 | Outpatient (CLI) | payer MEDICARE ==
[~2020-07-05] MED LIST changes: +CARAFATE 1GM1 G PO; +CONSTULOSE 20G/30ML; +REQUIP 1MG T1 MG/TAB PO
== END ==
LOC: COL.RAD 14:02
DX: K86.1 Other chronic pancreatitis (principal); Z90.49 Acquired absence of other specified parts of digestive tract
CPT/HCPCS: Q9967

== ENCOUNTER 2020-07-30 11:58 | Emergency (ER) | payer MEDICARE ==
[~2020-07-30] VITALS: Ht 167.6 cm; Wt 58.2 kg
[2020-07-30 12:58] VITALS: TEMP 97.7
[2020-07-30 15:28] LABS: COLLECTION METHOD CLEAN CATCH
[2020-07-30 15:46] LABS: MUCOUS Present /lpf; PH 9 (5-8); URINE APPEARANCE Hazy; URINE BACTERIA None Seen /hpf; URINE BILIRUBIN Negative (NEGATIVE); URINE BLOOD Negative (NEGATIVE); URINE COLOR Yellow; URINE GLUCOSE Negative (NEGATIVE); URINE KETONE Negative (NEGATIVE); URINE LEUKOCYTE ESTERASE Negative (NEGATIVE); URINE NITRATE Negative (NEGATIVE); URINE PROTEIN(semi-quant) 1+ (NEGATIVE)
[2020-07-30 16:46] VITALS: BP 132/80; PULSE 71
== END 2020-07-30 16:47 | disposition home or self-care (01) ==
LOC: COL.ER 11:58
PROVIDERS: Nurse Practitioner
DX: S83.91XA Sprain of unspecified site of right knee, initial encounter (principal); S33.5XXA Sprain of ligaments of lumbar spine, initial encounter; S70.01XA Contusion of right hip, initial encounter; F17.201 Nicotine dependence, unspecified, in remission; W03.XXXA Other fall on same level due to collision with another person, initial encounter
CPT/HCPCS: L1846

== ENCOUNTER 2020-10-10 03:41 | Emergency (ER) | payer MEDICARE ==
[~2020-10-10] VITALS: Ht 167.6 cm; Wt 63.6 kg
[2020-10-10 03:42] VITALS: TEMP 97
[2020-10-10 05:41] LABS: BASO # 0.1 (0.0-0.2); BASO % 0.3 % (0.0-2.0); EOS # 0.1 (0.0-0.7); EOS % 0.6 % (0-4.0); GRAN # 11.9 (1.4-6.5); GRAN % 82.5 % (42.2-75.2); HEMATOCRIT 41.9 % (37.0-47.0); HEMOGLOBIN 13.9 g/dl (12.5-16.0); LYMPH # 1.5 (1.2-3.4); LYMPH % 10.3 % (20.0-51.0); MEAN CELL VOLUME 92 fl (80.0-100.0); MEAN CORPUSCULAR HEMOGLOBIN 31 pg (27.0-31.0); MEAN CORPUSCULAR HGB CONC 33 g/dl (33.0-37.0); MONO # 0.8 (0.1-0.6); MONO % 5.7 % (1.7-9.3); PLATELET COUNT 222 K/mm3 (130-400); RED BLOOD COUNT 4.56 M/mm3 (4.10-5.30); REDCELL DISTRIBUTION WIDTH-CV 13.2 % (11.5-14.5)
[2020-10-10 06:17] LABS: TROPONIN-I < 0.012 ng/mL (0.000-0.035)
[2020-10-10] MEDS ORDERED: NORCO 325 MG-51 TAB PO (07:12)
[2020-10-10 08:05] VITALS: BP 166/112; PULSE 92
== END 2020-10-10 08:05 | disposition home or self-care (01) ==
LOC: COL.ER 03:41
PROVIDERS: Emergency Medicine
DX: M79.601 Pain in right arm (principal); M79.602 Pain in left arm; M79.604 Pain in right leg; M79.605 Pain in left leg; G89.29 Other chronic pain; M79.10 Myalgia, unspecified site; I10 Essential (primary) hypertension; J44.9 Chronic obstructive pulmonary disease, unspecified; I50.9 Heart failure, unspecified; Z88.6 Allergy status to analgesic agent; Z79.899 Other long term (current) drug therapy; Z79.82 Long term (current) use of aspirin
CPT/HCPCS: J1100; J1170; J1885; J2405; J7030

== ENCOUNTER 2021-02-07 14:42 | Emergency (ER) | payer MEDICARE ==
[~2021-02-07] VITALS: Ht 170.2 cm; Wt 68.2 kg
[2021-02-07 15:09] VITALS: TEMP 98.3
[2021-02-07 16:12] LABS: BASO % 0.3 % (0.0-2.0); EOS % 0.2 % (0.0-4.0); GRAN # 11.1 K/mm3 (1.4-6.5); GRAN % 89.4 % (42.2-75.2); HEMATOCRIT 44.1 % (37.0-47.0); HEMOGLOBIN 14.1 g/dl (12.5-16.0); LYMPH # 0.8 K/mm3 (1.2-3.4); LYMPH % 6.4 % (20.0-51.0); MEAN CELL VOLUME 96 fl (80.0-100.0); MEAN CORPUSCULAR HEMOGLOBIN 31 pg (27-31); MEAN CORPUSCULAR HGB CONC 32 g/dl (33.0-37.0); MEAN PLATELET VOLUME 8.7 fl (7.4-10.4); MONO # 0.3 K/mm3 (0.1-0.6); MONO % 2.7 % (1.7-9.3); PLATELET COUNT 223 K/mm3 (130-400); RED BLOOD COUNT 4.61 M/mm3 (4.10-5.30); REDCELL DISTRIBUTION WIDTH-CV 13.2 % (11.5-14.5)
[2021-02-07 17:12] LABS: ALBUMIN 3.1 gm/dL (3.4-4.8); BILIRUBIN,TOTAL 0.4 mg/dL (0.2-1.2); C-REACTIVE PROTEIN 0.19 mg/dL (0.00-0.50); CALCIUM 8.3 mg/dL (8.4-10.2); CREATININE, serum 0.73 mg/dL (0.57-1.11); POTASSIUM 4.8 mmol/L (3.5-4.5); TOTAL PROTEIN 5.6 gm/dL (6.2-8.1)
[2021-02-07] MEDS ORDERED: PREDNISONE20 MG PO (18:15)
[2021-02-07 18:28] VITALS: BP 139/54; PULSE 83
== END 2021-02-07 18:28 | disposition home or self-care (01) ==
LOC: COL.ER 14:42
PROVIDERS: Emergency Medicine
DX: J44.1 Chronic obstructive pulmonary disease with (acute) exacerbation (principal); G20 Parkinson's disease; F17.210 Nicotine dependence, cigarettes, uncomplicated; Z20.822 Contact with and (suspected) exposure to COVID-19; Z79.899 Other long term (current) drug therapy
CPT/HCPCS: J2930; J7030; J7512

== ENCOUNTER 2021-02-27 16:56 | Inpatient (IN) | payer BC, MEDICARE ==
[~2021-02-27] VITALS: Ht 170.2 cm; Wt 72.9 kg
[~2021-02-27 16:56] MED LIST changes: -CONSTULOSE 20G/30ML; +CONSTULOSE 20G/30ML PO
[2021-02-27 17:44] LABS: BASO % 0.4 % (0.0-2.0); EOS % 0.3 % (0.0-4.0); GRAN # 9.3 K/mm3 (1.4-6.5); GRAN % 82.8 % (42.2-75.2); HEMATOCRIT 46.3 % (37.0-47.0); HEMOGLOBIN 14.7 g/dl (12.5-16.0); LYMPH # 1.1 K/mm3 (1.2-3.4); LYMPH % 9.6 % (20.0-51.0); MEAN CELL VOLUME 95 fl (80.0-100.0); MEAN CORPUSCULAR HEMOGLOBIN 30 pg (27-31); MEAN CORPUSCULAR HGB CONC 32 g/dl (33.0-37.0); MONO # 0.6 K/mm3 (0.1-0.6); MONO % 5.7 % (1.7-9.3); PLATELET COUNT 260 K/mm3 (130-400); RED BLOOD COUNT 4.87 M/mm3 (4.10-5.30); REDCELL DISTRIBUTION WIDTH-CV 13.1 % (11.5-14.5)
[2021-02-27 17:54] LABS: ALBUMIN 3.7 gm/dL (3.4-4.8); BILIRUBIN,TOTAL 0.5 mg/dL (0.2-1.2); CALCIUM 9.6 mg/dL (8.4-10.2); CREATININE, serum 0.72 mg/dL (0.57-1.11); POTASSIUM 4.9 mmol/L (3.5-4.5); TOTAL PROTEIN 6.9 gm/dL (6.2-8.1)
[2021-02-27 18:00] LABS: TROPONIN-I 0.016 ng/mL (0.00-0.033)
[2021-02-27] MEDS ORDERED: SENNA-S 50 MG-81 TAB PO (20:44)
[2021-02-27] MEDS ORDERED: PULMICORT0.5 MG/2 M IH (20:49)
[2021-02-27 22:27] VITALS: BP 144/61; PULSE 94; TEMP 97.5
--- NOTE | 2021-02-27 23:20 | NUR ---
Admitted to medical floor from ER, DX REGISTERED DENTAL ASSISTANT exacerbation, o2 at 2L/nc, with sats at 96%, SOB with exertion, Tele on 84/min SR, Lung sounds with some insp/exp wheezes- no requests at this time.
[2021-02-28 00:44] LABS: ARTERIAL BLD GAS O2 SATURATION 97.7 % (92-100); ARTERIAL BLD GAS TCO2 CT 20.1; ARTERIAL BLOOD GAS BASE EXCESS 7.3 (-2-2); ARTERIAL BLOOD GAS HCO3 35.2 meq/L (22-26); ARTERIAL BLOOD GAS PCO2 64.4 mmHg (35-45); ARTERIAL BLOOD GAS PO2 101.4 mmHg (80-100); ARTERIAL BLOOD GAS pH 7.36 (7.35-7.45)
--- NOTE | 2021-02-28 05:00 | NUR ---
Has been sleeping well tonight- Respiratory viral panel completed-result showed Bordetella pertussis,, called Paola RAMÍREZ with result. VSS, States is feeling better this AM.
[2021-02-28 05:25] VITALS: BP 104/72; PULSE 86; TEMP 97.6
[2021-02-28 06:59] LABS: HEMATOCRIT 45.1 % (37.0-47.0); HEMOGLOBIN 14.5 g/dl (12.5-16.0); MEAN CELL VOLUME 95 fl (80.0-100.0); MEAN CORPUSCULAR HEMOGLOBIN 31 pg (27-31); MEAN CORPUSCULAR HGB CONC 32 g/dl (33.0-37.0); MEAN PLATELET VOLUME 9.4 fl (7.4-10.4); PLATELET COUNT 263 K/mm3 (130-400); RED BLOOD COUNT 4.74 M/mm3 (4.10-5.30)
[2021-02-28 07:14] LABS: CREATININE, serum 0.75 mg/dL (0.57-1.11)
[2021-02-28 08:00] VITALS: BP 103/46; PULSE 82; TEMP 98
[2021-02-28 08:20] LABS: BAND 2 % (0-10); LYMPHOCYTE 7 % (20.0-51.0); NEUTROPHILS 91 % (42.0-75.2)
[2021-02-28 08:21] LABS: HYPOCHROMIA 1+; PLATELET ESTIMATE NORMAL (NORMAL)
[2021-02-28 12:18] VITALS: BP 119/66; PULSE 83
--- NOTE | 2021-02-28 16:26 | NUR ---
Newspaper Copy Editor contacted patient by phone to discuss discharge planning. Patient lives in [place] with her , Thierry (ph#[phone]) and sees Dr. Bruno for primary care. [facility] with no difficulties and uses a walker for ambulation. Patient also has home oxygen from [facility]. Patient reports independence with ADLS, however stated she has been feeling pretty wiped out since being sick. Patient reports she has completed Advance Directives, however SW did not locate any copies in EMR. Patient plans to return home upon discharge. SW reviewed PT recommendation for outpatient PT vs Home Health. Patient states she wants to wait and see how things go before deciding on this. Discharge Plan: Home, PT recommending outpatient PT vs Home Health
[2021-02-28 17:24] VITALS: BP 133/61; PULSE 82
[2021-02-28 19:52] VITALS: BP 125/74; PULSE 86; TEMP 97.9
[2021-03-01 00:16] VITALS: BP 131/75; PULSE 80; TEMP 97.5
[2021-03-01 05:15] VITALS: BP 123/78; PULSE 78; TEMP 97.3
--- NOTE | 2021-03-01 06:40 | NUR ---
No new issues noted or reported by patient.
[2021-03-01 08:31] LABS: HEMATOCRIT 39.7 % (37.0-47.0); HEMOGLOBIN 12.8 g/dl (12.5-16.0); MEAN CELL VOLUME 93 fl (80.0-100.0); MEAN CORPUSCULAR HEMOGLOBIN 30 pg (27-31); MEAN CORPUSCULAR HGB CONC 32 g/dl (33.0-37.0); MEAN PLATELET VOLUME 8.9 fl (7.4-10.4); PLATELET COUNT 248 K/mm3 (130-400); RED BLOOD COUNT 4.29 M/mm3 (4.10-5.30); REDCELL DISTRIBUTION WIDTH-CV 13.1 % (11.5-14.5)
[2021-03-01 08:35] VITALS: BP 136/77; PULSE 86; TEMP 97.9
[2021-03-01 08:45] LABS: CALCIUM 8.4 mg/dL (8.4-10.2); CREATININE, serum 0.78 mg/dL (0.57-1.11); POTASSIUM 4.5 mmol/L (3.5-4.5)
[2021-03-01 08:53] LABS: BAND 10 % (0-10); NEUTROPHILS 88 % (42.0-75.2); PLATELET ESTIMATE NORMAL (NORMAL)
[2021-03-01] MEDS ORDERED: COREG 6.256.25 MG/TA PO (11:15)
[2021-03-01] MEDS ORDERED: MUCUS RELIEF400 M1 PO (11:15)
[2021-03-01] MEDS ORDERED: PREDNISONE10 MG PO (11:17)
[2021-03-01 12:24] VITALS: BP 132/55; PULSE 86; TEMP 98.3
--- NOTE | 2021-03-01 12:39 | NUR ---
ISABELA Mckenna notified pt's IV infiltrated while Azithromycin infusing - Phlebitis score informed Will switch to oral azithromycin with probiotic, kitchen called for yogurt to be delivered
--- NOTE | 2021-03-01 14:08 | NUR ---
Pt agrees with discharge instructions. Pt's ride will be here at 1445 to pickling solution maker pt
== END 2021-03-01 16:00 | disposition home or self-care (01) | DRG 189 ==
LOC: COL.ER 16:56 → MEDICAL 19:36 → SURG 19:36 → MEDICAL 22:45 → SURG 02-28 05:21
PROVIDERS: Emergency Medicine; Internal Medicine; Nurse Practitioner Family; ADMIT Internal Medicine
DX: J96.21 Acute and chronic respiratory failure with hypoxia (principal); A37.01 Whooping cough due to Bordetella pertussis with pneumonia; J44.1 Chronic obstructive pulmonary disease with (acute) exacerbation; I42.8 Other cardiomyopathies; G90.50 Complex regional pain syndrome I, unspecified; J96.22 Acute and chronic respiratory failure with hypercapnia; G20 Parkinson's disease; G62.9 Polyneuropathy, unspecified; I10 Essential (primary) hypertension; E87.5 Hyperkalemia; K21.9 Gastro-esophageal reflux disease without esophagitis; K64.9 Unspecified hemorrhoids; R91.1 Solitary pulmonary nodule; Z20.822 Contact with and (suspected) exposure to COVID-19; Z95.0 Presence of cardiac pacemaker; Z79.82 Long term (current) use of aspirin; Z87.891 Personal history of nicotine dependence; Z23 Encounter for immunization
CPT/HCPCS: 99223-AI; 99233-AI; 99239; A9284; J0456; J1650; J2930; J7050; Q9967

== ENCOUNTER → 2021-07-23 | Outpatient (CLI) | payer MEDICARE ==
[~2021-07-23] MED LIST changes: +COREG 6.256.25 MG/TA PO; +MUCUS RELIEF400 M1 PO; +SENNA-S 50 MG-81 TAB PO
== END ==
LOC: COL.RAD 13:58
DX: S43.402A Unspecified sprain of left shoulder joint, initial encounter (principal)
CPT/HCPCS: Q9967

== ENCOUNTER 2021-10-25 15:12 | Emergency (ER) | payer MEDICARE ==
[~2021-10-25] VITALS: Ht 170.2 cm; Wt 70.5 kg
[2021-10-25 15:38] VITALS: TEMP 98.2
[2021-10-25 16:31] LABS: BASO # 0.1 K/mm3 (0.0-0.2); BASO % 0.6 % (0.0-2.0); EOS # 0.5 K/mm3 (0.0-0.7); EOS % 5.6 % (0.0-4.0); GRAN # 5.6 K/mm3 (1.4-6.5); GRAN % 68.7 % (42.2-75.2); HEMATOCRIT 36.4 % (37.0-47.0); LYMPH # 1.2 K/mm3 (1.2-3.4); LYMPH % 14.7 % (20.0-51.0); MEAN CELL VOLUME 89 fl (80.0-100.0); MEAN CORPUSCULAR HEMOGLOBIN 29 pg (27-31); MEAN CORPUSCULAR HGB CONC 33 g/dl (33.0-37.0); MONO # 0.8 K/mm3 (0.1-0.6); MONO % 10.2 % (1.7-9.3); PLATELET COUNT 208 K/mm3 (130-400); RED BLOOD COUNT 4.08 M/mm3 (4.10-5.30); REDCELL DISTRIBUTION WIDTH-CV 12.5 % (11.5-14.5)
[2021-10-25 16:38] LABS: INR 1.2 (0.8-3.0); PROTHROMBIN TIME 13.5 SECONDS (9.7-12.8)
[2021-10-25 16:40] LABS: PARTIAL THROMBOPLASTIN TIME 36.7 SECONDS (26.0-37.0)
[2021-10-25 17:10] LABS: ALBUMIN 3.4 gm/dL (3.4-4.8); BILIRUBIN,TOTAL 0.5 mg/dL (0.2-1.2); CALCIUM 9.4 mg/dL (8.4-10.2); CREATININE, serum 0.8 mg/dL (0.57-1.11); POTASSIUM 4.2 mmol/L (3.5-4.5); TOTAL PROTEIN 6.3 gm/dL (6.2-8.1)
[2021-10-25 17:16] LABS: TROPONIN-I 0.02 ng/mL (0.00-0.033)
[2021-10-25] MEDS ORDERED: COREG 25MG25 MG/TAB PO (17:47)
[2021-10-25 18:00] VITALS: BP 127/81; PULSE 83
[2021-11-08] MEDS ORDERED: COZAAR 25MG25 MG/TAB PO (12:16)
[2021-11-08] MEDS ORDERED: LANOXIN 0.120.125 MG PO (12:17)
[2021-11-08] MEDS ORDERED: PREVACID 30MG30 M1 PO (12:24)
[2021-11-08] MEDS ORDERED: ELIQUIS 5MG PO (12:25)
[2021-11-08] MEDS ORDERED: MOBIC15 MG PO (12:25)
[2021-11-08] MEDS ORDERED: SENNA-LAX8.6 MG PO (12:26)
[2021-11-08] MEDS ORDERED: STOOL SOFTENER100 M2 PO (12:26)
[2021-11-08] MEDS ORDERED: ZYRTEC 10MG10 MG PO (12:26)
[2021-11-08] MEDS ORDERED: AZO URINARY PAI95 MG PO (12:27)
[2021-11-08] MEDS ORDERED: BREZTRI AEROS10.7 GM IH (12:34)
== END 2021-10-25 18:00 | disposition home or self-care (01) ==
LOC: COL.ER 15:12
PROVIDERS: Emergency Medicine
DX: I48.91 Unspecified atrial fibrillation (principal); J44.9 Chronic obstructive pulmonary disease, unspecified; Z98.61 Coronary angioplasty status; Z95.0 Presence of cardiac pacemaker; Z86.16 Personal history of COVID-19; Z99.81 Dependence on supplemental oxygen

== ENCOUNTER 2021-11-28 10:16 | Emergency (ER) | payer MEDICARE ==
[~2021-11-28] VITALS: Ht 170.2 cm; Wt 68.2 kg
[~2021-11-28 10:16] MED LIST changes: +AZO URINARY PAI95 MG PO; +BREZTRI AEROS10.7 GM IH; +COREG 25MG25 MG/TAB PO; +COZAAR 25MG25 MG/TAB PO; +ELIQUIS 5MG PO; +MOBIC15 MG PO; +STOOL SOFTENER100 M2 PO; +ZYRTEC 10MG10 MG PO
[2021-11-28 10:26] VITALS: TEMP 98.1
[2021-11-28] MEDS ORDERED: FLEXERIL 1010 MG/TAB PO (14:14)
[2021-11-28 14:30] VITALS: BP 126/76; PULSE 74
== END 2021-11-28 14:30 | disposition home or self-care (01) ==
LOC: COL.ER 10:16
DX: M54.2 Cervicalgia (principal); Z87.891 Personal history of nicotine dependence; Z98.1 Arthrodesis status; X50.0XXA Overexertion from strenuous movement or load, initial encounter; Y92.009 Unspecified place in unspecified non-institutional (private) residence as the place of occurrence of the external cause

== ENCOUNTER → 2022-03-21 | Outpatient (CLI) | payer MEDICARE, OTHER | LOC: MC.RAD 08:43 | DX: R92.8 Other abnormal and inconclusive findings on diagnostic imaging of breast (principal) ==

== ENCOUNTER 2022-11-18 20:04 | Inpatient (IN) | payer MEDICARE ==
[~2022-11-18] VITALS: Ht 168.9 cm; Wt 100.0 kg
[~2022-11-18 20:04] MED LIST changes: +ALBUTEROL1.25 MG/3 IH; +BENICAR 20MG TA20 MG; +BIAXIN 250MG T250 M1 PO; +COUMADIN 3MG3 MG/TAB PO; +DILAUDID PAIN PUMP; +FLOVENT DI50 MCG/Act IH; +LACTULOSE10 GM/153 PO; +LASIX 20MG TABL20 MG PO; +MAG-OX 400400 MG/TAB PO; +NEURONTIN100 MG/CAP PO; -PRAVACHOL 40MG40 MG PO; +PRAVACHOL80 MG PO; +PREDNISONE10 MG; +RT Anoro Ellipta IH; +SINEMET 25/101 UDTAB PO; +TOPAMAX 25MG25 M1 PO; +ZOFRAN ODT4 MG PO
[2022-11-18 20:45] LABS: BASO % 0.2 % (0.0-2.0); EOS % 0.1 % (0.0-4.0); GRAN # 10.4 K/mm3 (1.4-6.5); GRAN % 83.4 % (42.2-75.2); HEMATOCRIT 39.6 % (37.0-47.0); LYMPH # 1.2 K/mm3 (1.2-3.4); LYMPH % 9.5 % (20.0-51.0); MEAN CELL VOLUME 97 fl (80.0-100.0); MEAN CORPUSCULAR HEMOGLOBIN 29 pg (27-31); MEAN CORPUSCULAR HGB CONC 30 g/dl (33.0-37.0); MONO # 0.7 K/mm3 (0.1-0.6); MONO % 5.7 % (1.7-9.3); PLATELET COUNT 253 K/mm3 (130-400); RED BLOOD COUNT 4.08 M/mm3 (4.10-5.30); REDCELL DISTRIBUTION WIDTH-CV 14.6 % (11.5-14.5)
[2022-11-18 20:48] LABS: INR 3.6 (0.8-3.0); PROTHROMBIN TIME 38.2 SECONDS (9.7-12.8)
[2022-11-18 20:58] LABS: ALBUMIN 3.3 gm/dL (3.4-4.8); BILIRUBIN,TOTAL 0.2 mg/dL (0.2-1.2); CALCIUM 8.6 mg/dL (8.4-10.2); CREATININE, serum 0.9 mg/dL (0.57-1.11); POTASSIUM 4.9 mmol/L (3.5-4.5); TOTAL PROTEIN 6.7 gm/dL (6.2-8.1)
[2022-11-18 21:04] LABS: TROPONIN-I 0.012 ng/mL (0.00-0.033)
[2022-11-18 21:10] VITALS: BP 133/86; PULSE 120
[2022-11-18 23:30] VITALS: BP 141/81; PULSE 77; TEMP 97.5
[2022-11-19] VITALS (19 sets, daily range): BP systolic 70–161; BP diastolic 36–92; PULSE 70–86; TEMP 97.3–98.2
--- NOTE | 2022-11-19 00:05 | NUR ---
Admitted to medical from ER with afib/RVR, had Cardizem bolus and cardizem drip started in ER-- Cardizem IV at 5mg/hr{5cc/hr}, Tele on 76/min A-paced per Tele, SCD,s put on pt, pt Alert/oriented x4, pleasant, states pain to right arm which is constant is 2/10,, pt has a Dilaudid pain pump implanted, o2 at 3L/nc with sats 97-98%, States uses trilogy at night at home- will bring in tomorrow,, states since she will be awakened every hour for vitals she does not need the bipap tonight- will just wait for trilogy for tomorrow- will also bring in walker and partial tomorrow. Fall Risk- bed alarm on.
[2022-11-19] MEDS ORDERED: BUSPAR5 MG PO (01:22)
[2022-11-19] MEDS ORDERED: ZEBETA10 MG PO (01:25)
[2022-11-19] MEDS ORDERED: PREDNISONE10 MG PO (01:27)
--- NOTE | 2022-11-19 01:35 | NUR ---
B/P 70/51,, cardizem drip stopped, pt alert/oriented, states she feels fine, pulse 73/min A paced, wants to eat- sat at side of bed B/P 121/36,, Kelly RAMÍREZ called and order to stop cardizem drip and continue to asses vitals, also informed Kelly of clarification of a couple meds on med rec--- her heart doctor jose manuel still coreg and pt was to start a new med Bisoprolol 10 mg this am 11/19/22, also she is at the end of the prednisone taper and has just 5 days left of 10mg QD, also clarified that she is holding pts coumadin at this time-
[2022-11-19 05:10] LABS: HEMOGLOBIN 10.6 g/dl (12.5-16.0); MEAN CELL VOLUME 95 fl (80.0-100.0); MEAN CORPUSCULAR HEMOGLOBIN 30 pg (27-31); MEAN CORPUSCULAR HGB CONC 31 g/dl (33.0-37.0); MEAN PLATELET VOLUME 9.1 fl (7.4-10.4); PLATELET COUNT 207 K/mm3 (130-400); RED BLOOD COUNT 3.58 M/mm3 (4.10-5.30); REDCELL DISTRIBUTION WIDTH-CV 14.6 % (11.5-14.5)
[2022-11-19 05:17] LABS: INR 4.5 (0.8-3.0)
[2022-11-19 05:19] LABS: PROTHROMBIN TIME 47.4 SECONDS (9.7-12.8)
[2022-11-19 05:40] LABS: CALCIUM 8.2 mg/dL (8.4-10.2); CHOLESTEROL RISK RATIO 4.5; CREATININE, serum 0.82 mg/dL (0.57-1.11); MAGNESIUM 1.9 mg/dL (1.6-2.6); POTASSIUM 4.4 mmol/L (3.5-4.5)
[2022-11-19 05:46] LABS: BAND 5 % (0-10); EOSINOPHIL 1 % (0-4); HYPOCHROMIA 1+; LYMPHOCYTE 17 % (20.0-51.0); NEUTROPHILS 65 % (42.0-75.2); PLATELET ESTIMATE NORMAL (NORMAL); STOMATOCYTE 1+
[2022-11-19 06:01] LABS: TSH w REFLEX 1.818 uIU/mL (0.350-4.940)
--- NOTE | 2022-11-19 06:11 | NUR ---
Did have a headache during the night-- called and got Tylenol order,, pt list Tylenol as allergy but she stated she only did that to "protect her kidneys", and that it is not an allergy ,, Given as ordered, VSS, B/P back up to 150/70,s, cardizem drip remains off, Tele remains 76/min A paced, This mornings PT/INR was called to Kelly RAMÍREZ PT 47.4, INR 4.5,,, continue to hold Coumadin.
--- NOTE | 2022-11-19 10:07 | NUR ---
Patient awake, alert and oriented. C/O headache this morning, PRN given. Denies nausea. Shortness of breath on exertion. Bed in lowest position, call light within reach. Denies further needs at this time.
--- NOTE | 2022-11-19 10:34 | NUR ---
Sever visit attempts; Food Services Coordinator left card offering God's blessings and information regarding the availability of Spiritual Care at our hospital.
[2022-11-19] MEDS ORDERED: COREG 25MG25 MG/TAB PO (12:54)
--- NOTE | 2022-11-19 13:37 | NUR ---
used car make ready worker met with patient to discuss discharge planning. Patient confirmed she lives in [place] with her , Thierry, P# [phone]. Patient's primary care physician is Dr. Roberta Bruon and preferred pharmacy is [facility] in [place]. Patient denied any difficulties with affording medications and expressed she uses [facility] when necessary. Patient reports she has a [facility]- appointing Thierry and Bob as agents for healthcare decisions. Patient did not have a copy with her at this time. Patient reports she has two walkers, O2 concentrator, portable O2, ventilator, nebulizer and shower chair. Patient reports she is not fully independent with ADLS. Patient reports she can dress herself and she showered on but it took around an hour for her to complete this on her own. Patient reports she currently utilizes [facility] and her physical therapist through them have been working with her on the two steps from her garage to her house. Patient reports she uses her walker and needs assistance going up the steps, patient expressed she does not feel comfortable going up steps without assistance. Patient reports she has stairs into the basement but she does not utilize them. Patient expressed her is able to transport her to and from appointments and once she is feeling comfortable with driving again she would be able to do so on her own. Patient expressed if she returns home at time of discharge, she would like to utilize [facility] again. Patient expressed if she were to go to longterm before returning home, she would like a referral to [facility]. Patient expressed she was open to the recommendations her medical team, PT and OT provide for discharge planning. used car make ready worker contacted [facility] to update them that patient was in the hospital. used car make ready worker will continue to follow patient's care and provide updates on discharge plan.
--- NOTE | 2022-11-19 15:30 | NUR ---
Dr. Cotton notified of elevation in QTC. Physician states it is okay to continue treatment as ordered.
--- NOTE | 2022-11-19 16:30 | NUR ---
C/O pain with urination and back pain. ISABELA Paris notified, urine sample ordered.
[2022-11-19 17:15] LABS: COLLECTION METHOD CLEAN CATCH
[2022-11-19 17:26] LABS: URINE APPEARANCE Clear (CLEAR/HAZY); URINE COLOR Yellow (YELLOW); URINE GLUCOSE Negative (NEGATIVE); URINE KETONE Negative (NEGATIVE); URINE NITRATE Negative (NEGATIVE); URINE PROTEIN(semi-quant) Negative (NEGATIVE); URINE UROBILINOGEN 0.2 E.U/dL (0.2-1.0)
[2022-11-19 17:27] LABS: URINE BLOOD TRACE-INTACT (NEGATIVE)
[2022-11-19 17:34] LABS: SQUAMOUS EPITHELIAL None Seen /hpf (0-10); URINE BACTERIA Occasional /hpf (NONE SEEN); URINE RBC 0-2 /hpf (0-2)
--- NOTE | 2022-11-19 20:30 | NUR ---
Initial shift assessment done- states had a good day, started on tikosyn today -- will get EKG 2 hr after dose tonight,, Using her home Trilogy tonight, tele on, A paced, o2 at 3L/nc, states only issue tonight is some urgency with urination,, states day shift did run a U/A and it was ok so will continue to monitor,
[2022-11-20] VITALS (10 sets, daily range): BP systolic 118–149; BP diastolic 57–91; PULSE 70–79; TEMP 97.5–98.5
[2022-11-20 05:34] LABS: BASO % 0.4 % (0.0-2.0); EOS # 0.1 K/mm3 (0.0-0.7); EOS % 1.2 % (0.0-4.0); GRAN # 5.3 K/mm3 (1.4-6.5); GRAN % 67.7 % (42.2-75.2); HEMOGLOBIN 10.5 g/dl (12.5-16.0); LYMPH # 1.6 K/mm3 (1.2-3.4); LYMPH % 21.1 % (20.0-51.0); MEAN CELL VOLUME 95 fl (80.0-100.0); MEAN CORPUSCULAR HEMOGLOBIN 30 pg (27-31); MEAN CORPUSCULAR HGB CONC 32 g/dl (33.0-37.0); MEAN PLATELET VOLUME 9.4 fl (7.4-10.4); MONO # 0.6 K/mm3 (0.1-0.6); MONO % 8.3 % (1.7-9.3); PLATELET COUNT 207 K/mm3 (130-400); RED BLOOD COUNT 3.47 M/mm3 (4.10-5.30); REDCELL DISTRIBUTION WIDTH-CV 14.5 % (11.5-14.5)
--- NOTE | 2022-11-20 05:35 | NUR ---
No changes- tolerating the tikosyn without problems , VSS, most recent QTC 415 at 0030 this morning
[2022-11-20 05:41] LABS: INR 3.2 (0.8-3.0); PROTHROMBIN TIME 33.9 SECONDS (9.7-12.8)
[2022-11-20 05:52] LABS: CALCIUM 7.7 mg/dL (8.4-10.2); CREATININE, serum 0.78 mg/dL (0.57-1.11); MAGNESIUM 1.8 mg/dL (1.6-2.6); POTASSIUM 3.8 mmol/L (3.5-4.5)
--- NOTE | 2022-11-20 10:43 | NUR ---
Patient awake, alert and oriented. C/O headache and slight burning with urination, flank pain. Denies shortness of breath at rest or nausea. Tolerated breakfast well. Denies chest pressure, palpitations. Stable on feet when transferring to bathroom, standby assist. Bed in lowest position, call light within reach. Denies further needs at this time.
[2022-11-20 13:11] LABS: COLLECTION METHOD CLEAN CATCH
[2022-11-20 13:58] LABS: PH 5.5 (5.0-8.5); URINE APPEARANCE Clear (CLEAR/HAZY); URINE COLOR Amber (YELLOW); URINE GLUCOSE TRACE (NEGATIVE); URINE KETONE TRACE (NEGATIVE); URINE PROTEIN(semi-quant) 2+ (NEGATIVE)
[2022-11-20 13:59] LABS: URINE BLOOD Negative (NEGATIVE); URINE NITRATE Positive (NEGATIVE); URINE WBC 0-2 /hpf (0-2)
[2022-11-20 14:00] LABS: URINE BACTERIA Rare /hpf (NONE SEEN)
--- NOTE | 2022-11-20 16:23 | NUR ---
settlement worker faxed clinical updates to [facility]. Discharge Plan: Home with [facility]
--- NOTE | 2022-11-20 18:15 | NUR ---
Uneventful day, patient sitting comfortably in bed. Does state that she feels like her ankles are starting to swell. Denies pain, shortness of breath. Still having urgency with urination, denies pain with urination. Bed in lowest position, call light within reach.
--- NOTE | 2022-11-20 19:00 | NUR ---
RECEIVED CHANGE OF SHIFT REPORT FROM DAY SHIFT RN.
--- NOTE | 2022-11-20 19:47 | NUR ---
Patient scoring as a fall risk but refuses bed alarm. Multiple discussions with patient about calling before getting up to use the bathroom or else bed alarm will need to be turned on, patient agreeable. Patient wearing fall risk bracelet but insists on wearing home pajamas. Sitting on side of bed, states she will call before getting up. Call light within reach, bed in lowest position. Denies further needs at this time.
[2022-11-21] VITALS (10 sets, daily range): BP systolic 123–144; BP diastolic 54–76; PULSE 70–98; TEMP 97.8–98.4
[2022-11-21 05:19] LABS: BASO % 0.4 % (0.0-2.0); EOS # 0.1 K/mm3 (0.0-0.7); EOS % 1.3 % (0.0-4.0); GRAN # 5.3 K/mm3 (1.4-6.5); GRAN % 66.1 % (42.2-75.2); HEMOGLOBIN 10.2 g/dl (12.5-16.0); LYMPH # 1.8 K/mm3 (1.2-3.4); LYMPH % 22.1 % (20.0-51.0); MEAN CELL VOLUME 97 fl (80.0-100.0); MEAN CORPUSCULAR HEMOGLOBIN 30 pg (27-31); MEAN CORPUSCULAR HGB CONC 30 g/dl (33.0-37.0); MEAN PLATELET VOLUME 9.3 fl (7.4-10.4); MONO # 0.7 K/mm3 (0.1-0.6); MONO % 8.8 % (1.7-9.3); PLATELET COUNT 200 K/mm3 (130-400); RED BLOOD COUNT 3.44 M/mm3 (4.10-5.30); REDCELL DISTRIBUTION WIDTH-CV 14.7 % (11.5-14.5)
[2022-11-21 05:22] LABS: HEMATOCRIT 33.5 % (37.0-47.0)
[2022-11-21 05:24] LABS: INR 2.5 (0.8-3.0); PROTHROMBIN TIME 26.7 SECONDS (9.7-12.8)
[2022-11-21 05:36] LABS: CALCIUM 7.5 mg/dL (8.4-10.2); CREATININE, serum 0.83 mg/dL (0.57-1.11); MAGNESIUM 1.9 mg/dL (1.6-2.6); POTASSIUM 3.9 mmol/L (3.5-4.5)
--- NOTE | 2022-11-21 07:04 | NUR ---
CHANGE OF SHIFT REPORT GIVEN TO DAY SHIFT RN, MIKIE.
--- NOTE | 2022-11-21 09:00 | NUR ---
PT AWAKE AND SITTING ON SIDE OF BED UPON ENTERING. ASSESSMENT DONE, PT DENIES PAIN AT THIS TIME. PT ON 3L NASAL CANNULA AND MEDS GIVEN WITHOUT DIFFICULTY. PT IS ON DAY 3 OF TIKOSYN AND DENIES NEEDS AT THIS TIME. BED IN LOWEST POSITION, CALL LIGHT IN REACH
--- NOTE | 2022-11-21 11:00 | NUR ---
MICHA, DIRECTOR RECORDS MANAGEMENT CALLED THIS NURSE AND REPORTED THAT PT HAD 5 BEATS OF VTACH ON THE TELE MONITOR. UPON ENTERING PT IS ASYMPTOMATIC AND DENIES NEEDS AT THIS TIME. DR PAZ NOTIFIED, NO NEW ORDERS AT THIS TIME.
--- NOTE | 2022-11-21 11:26 | NUR ---
PT IN CT
--- NOTE | 2022-11-21 13:37 | NUR ---
PT REPORTING INCREASED LEFT HAND/WRIST "NERVE PAIN". PT REQUESTING ANOTHER DOSE OF GABAPENTIN. DR PAZ CALLED AND UPDATED, GABAPENTIN 100 MG ONE TIME DOSE ORDERD. PT DENIES FURTHER NEEDS AT THIS TIME
--- NOTE | 2022-11-21 14:08 | NUR ---
PT REPORTS INCREASED PAIN AT IV SITE IN LEFT WRIST WHILE MAGNESIUM SULFATE RUNNING PER ORDER. MEDS STOPPED AND EDEMA NOTED TO SITE, IV REMOVED. PT HAS A RIGHT ARM RESTRICT AND STATES THAT THE IV IN HER LEFT HAND TOOK 6 TRIES. PT STATES "GET SOMEONE WHO WILL DO IT IN THE LEAST AMOUNT OF TRIES AND WILL MAKE IT LEAST PAINFUL". IV SERVICES CALLED.
--- NOTE | 2022-11-21 14:41 | NUR ---
Auto Tire Recapper sent clinical updates to [facility].
--- NOTE | 2022-11-21 15:36 | NUR ---
protective services social worker met with patient to check in. Patient has an unknown discharge date at this time but expressed at time of discharge she would like to return home and continue her home health services through [facility]. No further concerns at this time. Social work intern brand, Ekaterina, faxed clinical updates to [facility]. Discharge Plan: Home with [facility]
--- NOTE | 2022-11-21 17:30 | NUR ---
MICHA, [employer] CALLED THIS NURSE AND NOTIFIED THAT PTS HEARTRATE DROPPED TO 29. UPON ENTERING PT IS BEING TRANSFERRED BACK TO BED BY PCT WITH WALKER. PT HAS BEEN REPORTING DIZZINESS THROUGHOUT THE DAY AND STATED AND SHE GOT INCREASINGLY DIZZY TRANSFERRING TO AND FROM THE BATHROOM, PT DENIES ANY OTHER SYMTPOMS AT THIS TIME. DR PAZ NOTIFIED AND ADVISED THIS NURSE TO CONTINUE TO MONITOR PT AND ORDERED AN EKG. PT DENIES FURHTER NEEDS AT THIS TIME.
[2022-11-22] VITALS (12 sets, daily range): BP systolic 119–146; BP diastolic 54–80; PULSE 73–91; TEMP 97.3–98.4
--- NOTE | 2022-11-22 02:51 | NUR ---
ASSESSMENT COMPLETE FOR TRUST OFFICER. PT COMPLAINED OF LUE PAIN. HOWEVER, PT DIDN'T FEEL SHE NEEDED ANY PAIN MEDICATION. SHE FELT THE PAIN WOULD PASS. PT REQUESTED COLACE FOR CONSTIPATION. HOSPITALIST CALLED. COLACE ORDERED AND GIVEN. PT ALSO COMPLAINED OF SOME DIZZINESS WHEN GETTING UP. PT GIVEN SCHEDULED ANTIVERT. PT FELT THE ANTIVENT WAS EFFECTIVE. PT DENIED CHEST PAIN, PALPITATIONS, N,V,D AND SOB. PT EXPRESSED NO ADDITIONAL NEEDS. CALL LIGHT WITHIN REACH.
[2022-11-22 05:24] LABS: INR 2.2 (0.8-3.0)
[2022-11-22 05:28] LABS: BASO % 0.4 % (0.0-2.0); EOS # 0.1 K/mm3 (0.0-0.7); EOS % 1.6 % (0.0-4.0); GRAN # 5.5 K/mm3 (1.4-6.5); GRAN % 65.4 % (42.2-75.2); HEMOGLOBIN 10.7 g/dl (12.5-16.0); LYMPH % 24.1 % (20.0-51.0); MEAN CELL VOLUME 98 fl (80.0-100.0); MEAN CORPUSCULAR HEMOGLOBIN 29 pg (27-31); MEAN CORPUSCULAR HGB CONC 30 g/dl (33.0-37.0); MEAN PLATELET VOLUME 9.6 fl (7.4-10.4); MONO # 0.6 K/mm3 (0.1-0.6); MONO % 7.3 % (1.7-9.3); PLATELET COUNT 226 K/mm3 (130-400); RED BLOOD COUNT 3.67 M/mm3 (4.10-5.30); REDCELL DISTRIBUTION WIDTH-CV 14.7 % (11.5-14.5)
[2022-11-22 05:30] LABS: HEMATOCRIT 36.1 % (37.0-47.0)
[2022-11-22 05:47] LABS: CALCIUM 7.4 mg/dL (8.4-10.2); CREATININE, serum 0.76 mg/dL (0.57-1.11); POTASSIUM 4.2 mmol/L (3.5-4.5)
--- NOTE | 2022-11-22 06:55 | NUR ---
REPORT GIVEN TO SIMONE BROWN.
--- NOTE | 2022-11-22 09:47 | NUR ---
Cutter Hand rounds: Long discussion with Patient regarding her feelings at home after her last stay in the hospital approximately one month ago. Patient recognizes her desire to have a professional counselor after this discharge. SIMONE Gann came into room to give medication. Dr. Thomas attempted a visit, but stated he would return when Cutter Hand visit was completed. Thierry arrived with Patient's preferred coffee from home. Cutter Hand prayed in a general way about things that were discussed. Cutter Hand called [employer] to request a visit with Patient about a counselor referral for after discharge. Kyler (not sure of spelling) stated she would visit Patient today.
--- NOTE | 2022-11-22 14:31 | NUR ---
Patient to chair x2 assist back to bed- she sat up for approxiametly 2 hours ago. Bedside dysphagia screen completed per Dr. Armstrong- patient fed applesauce. Patient swallowed the first couple bites without difficulty but held the next 1-2 bites in her mouth and drool noted on the left side of her mouth, moving down her chin. Dr. Armstrong notified and patient to remain NPO until speech therapy can evaluate. currently at bedside.
--- NOTE | 2022-11-22 15:28 | NUR ---
Assessment completed this am. Pacemaker download completed. Pacemaker interrogation completed with [employer] Ace Cortez. Dr. Cototn aware and planning for discharge tomorrow. Denies pain.
--- NOTE | 2022-11-22 15:54 | NUR ---
Nilsa wilkinson explained pt wants mental health resources. SW went to meet with pt although not d/c today; pt was sleep. SW will try again tomorrow.
--- NOTE | 2022-11-22 17:57 | NUR ---
No change since last entry. Patient continues to deny pain or needs.
[2022-11-23] VITALS (7 sets, daily range): BP systolic 111–154; BP diastolic 65–84; PULSE 72–77; TEMP 97.3–98.2
[2022-11-23 06:45] LABS: BASO % 0.3 % (0.0-2.0); EOS # 0.1 K/mm3 (0.0-0.7); EOS % 1.4 % (0.0-4.0); LYMPH # 1.6 K/mm3 (1.2-3.4); LYMPH % 21.5 % (20.0-51.0); MEAN CELL VOLUME 98 fl (80.0-100.0); MEAN CORPUSCULAR HGB CONC 31 g/dl (33.0-37.0); MEAN PLATELET VOLUME 9.1 fl (7.4-10.4); MONO # 0.6 K/mm3 (0.1-0.6); MONO % 7.8 % (1.7-9.3); PLATELET COUNT 188 K/mm3 (130-400); RED BLOOD COUNT 3.14 M/mm3 (4.10-5.30); REDCELL DISTRIBUTION WIDTH-CV 14.6 % (11.5-14.5)
[2022-11-23 06:49] LABS: HEMATOCRIT 30.7 % (37.0-47.0); HEMOGLOBIN 9.4 g/dl (12.5-16.0); MEAN CORPUSCULAR HEMOGLOBIN 30 pg (27-31)
[2022-11-23 07:01] LABS: INR 2.8 (0.8-3.0); PROTHROMBIN TIME 29.5 SECONDS (9.7-12.8)
[2022-11-23 07:03] LABS: CALCIUM 7.5 mg/dL (8.4-10.2); CREATININE, serum 0.72 mg/dL (0.57-1.11); MAGNESIUM 1.7 mg/dL (1.6-2.6); POTASSIUM 3.8 mmol/L (3.5-4.5)
--- NOTE | 2022-11-23 07:42 | NUR ---
PT STILL SLEEPING AND DOES NOT WANT TX @ THIS TIME. PT TOLD TO CALL WHEN READY.
--- NOTE | 2022-11-23 10:02 | NUR ---
PATIENT AMBULATING AROUND ROOM UPON ENTERING ROOM. MORNING MEDICATIONS GIVEN. SHIFT ASSESSMENT COMPLETED. PATIENT CURRENTLY ON 3L O2 VIA NC, TOLERATING WELL. REPORTING BACK AND RUE PAIN, MEDICATION GIVEN PER eMAR. UPDATED ON POC, PATIENT FEELS PREPARRED TO RETURN HOME TODAY. CALL LIGHT WITHIN REACH. WILL CONTINUE TO MONITOR.
--- NOTE | 2022-11-23 10:12 | NUR ---
SW provided pt with mental health resources.
[2022-11-23] MEDS ORDERED: TIKOSYN0.25 MG PO ×4 (11:24→16:05)
[2022-11-23] MEDS ORDERED: ZEBETA 5MG5 MG PO ×4 (11:25→16:05)
--- NOTE | 2022-11-23 13:26 | NUR ---
DISCHARGE INSTRUCTIONS REVIEWED, ALL QUESTIONS ANSWERED. IV DISCONTINUED. TELEMETRY DISCONTINUED. PATIENT PERSONAL MEDICATIONS RETURNED TO . PATIENT ESCORTED OFF OF UNIT BY [facility]IA [facility] STAFF.
--- NOTE | 2022-11-24 12:31 | NUR ---
nephrology social worker was contacted by [facility] whom expressed they had not received patient's discharge information. nephrology social worker notified Dr. Thomas patient needs home health and requested updated orders. nephrology social worker faxed discharge orders to [facility]. Discharge Plan: Home with Home Health
[2022-11-24] MEDS ORDERED: TIKOSYN0.25 MG PO (14:21)
[2022-11-24] MEDS ORDERED: ZEBETA 5MG5 MG PO (14:21)
== END 2022-11-23 13:33 | disposition home or self-care (01) | DRG 309 ==
LOC: COL.ER 20:04 → MEDICAL 21:57
PROVIDERS: Internal Medicine; Nurse Practitioner; Nurse Practitioner Family; Physician Assistant; ADMIT Internal Medicine
DX: I48.91 Unspecified atrial fibrillation (principal); J96.11 Chronic respiratory failure with hypoxia; I42.9 Cardiomyopathy, unspecified; D72.829 Elevated white blood cell count, unspecified; D64.9 Anemia, unspecified; E78.5 Hyperlipidemia, unspecified; J44.9 Chronic obstructive pulmonary disease, unspecified; I10 Essential (primary) hypertension; G20.A1 Parkinson's disease without dyskinesia, without mention of fluctuations; G62.9 Polyneuropathy, unspecified; G89.29 Other chronic pain; Z95.810 Presence of automatic (implantable) cardiac defibrillator; R53.81 Other malaise; K21.9 Gastro-esophageal reflux disease without esophagitis; F32.A Depression, unspecified
CPT/HCPCS: J3475; J7512

== ENCOUNTER 2022-11-30 09:47 | Emergency (ER) | payer MEDICARE ==
[~2022-11-30] VITALS: Ht 170.2 cm; Wt 93.6 kg
[~2022-11-30 09:47] MED LIST changes: +BUSPAR5 MG PO; +TIKOSYN0.25 MG PO; +ZEBETA 5MG5 MG PO; +ZEBETA10 MG PO
[2022-11-30 09:55] VITALS: TEMP 97.7
[2022-11-30 10:11] LABS: HEMOGLOBIN 11.4 g/dl (12.5-16.0); MEAN CELL VOLUME 95 fl (80.0-100.0); MEAN CORPUSCULAR HEMOGLOBIN 30 pg (27-31); MEAN CORPUSCULAR HGB CONC 31 g/dl (33.0-37.0); MEAN PLATELET VOLUME 8.8 fl (7.4-10.4); PLATELET COUNT 241 K/mm3 (130-400); RED BLOOD COUNT 3.86 M/mm3 (4.10-5.30); REDCELL DISTRIBUTION WIDTH-CV 13.9 % (11.5-14.5)
[2022-11-30 10:13] LABS: HEMATOCRIT 36.8 % (37.0-47.0)
[2022-11-30 10:17] LABS: INR 1.7 (0.8-3.0); PROTHROMBIN TIME 18.4 SECONDS (9.7-12.8)
[2022-11-30 10:23] LABS: BAND 6 % (0-10); EOSINOPHIL 1 % (0-4); LYMPHOCYTE 28 % (20.0-51.0); NEUTROPHILS 59 % (42.0-75.2); NUCLEATED RED BLOOD CELL 1 (0-6); PLATELET ESTIMATE NORMAL (NORMAL)
[2022-11-30 10:24] LABS: HYPOCHROMIA 1+
[2022-11-30 10:25] LABS: ALANINE AMINOTRANSFERASE 23 U/L (0-55); ALBUMIN 3.1 gm/dL (3.4-4.8); ALKALINE PHOSPHATASE 53 U/L (40-150); ANION GAP 10 mmol/L (7-16); AST,SGOT 14 U/L (5-34); BILIRUBIN,TOTAL 0.4 mg/dL (0.2-1.2); BLOOD UREA NITROGEN 21 mg/dL (10-20); CALCIUM 8.8 mg/dL (8.4-10.2); CARBON DIOXIDE 27 mmol/L (23-31); CHLORIDE 102 mmol/L (98-107); CREATININE, serum 0.95 mg/dL (0.57-1.11); GLUCOSE 159 mg/dL (70-99); POTASSIUM 4.3 mmol/L (3.5-4.5); SODIUM 139 mmol/L (136-145); TOTAL PROTEIN 5.9 gm/dL (6.2-8.1)
[2022-11-30 10:26] LABS: STOMATOCYTE 1+
[2022-11-30 10:32] LABS: TROPONIN-I < 0.010 ng/mL (0.00-0.033)
[2022-11-30] MEDS ORDERED: PREDNISONE20 MG PO (13:33)
[2022-11-30 13:40] VITALS: BP 112/77; PULSE 70
== END 2022-11-30 13:22 | disposition home or self-care (01) ==
LOC: COL.ER 09:47
PROVIDERS: Physician Assistant
DX: J44.9 Chronic obstructive pulmonary disease, unspecified (principal); N39.0 Urinary tract infection, site not specified; I48.91 Unspecified atrial fibrillation; Z79.01 Long term (current) use of anticoagulants; Z99.81 Dependence on supplemental oxygen

== ENCOUNTER 2022-12-11 13:37 | Emergency (ER) | payer MEDICARE ==
[~2022-12-11] VITALS: Ht 167.6 cm; Wt 95.9 kg
[2022-12-11 13:45] VITALS: TEMP 98
[2022-12-11 14:09] LABS: HEMOGLOBIN 10.7 g/dl (12.5-16.0); MEAN CELL VOLUME 98 fl (80.0-100.0); MEAN CORPUSCULAR HEMOGLOBIN 30 pg (27-31); MEAN CORPUSCULAR HGB CONC 30 g/dl (33.0-37.0); MEAN PLATELET VOLUME 9.1 fl (7.4-10.4); PLATELET COUNT 235 K/mm3 (130-400); RED BLOOD COUNT 3.63 M/mm3 (4.10-5.30); REDCELL DISTRIBUTION WIDTH-CV 14.2 % (11.5-14.5)
[2022-12-11 14:10] LABS: HEMATOCRIT 35.6 % (37.0-47.0)
[2022-12-11 14:28] LABS: ALBUMIN 3.1 gm/dL (3.4-4.8); BILIRUBIN,TOTAL 0.2 mg/dL (0.2-1.2); CALCIUM 8.5 mg/dL (8.4-10.2); CREATININE, serum 0.84 mg/dL (0.57-1.11); POTASSIUM 4.5 mmol/L (3.5-4.5); TOTAL PROTEIN 6.1 gm/dL (6.2-8.1)
[2022-12-11 14:34] LABS: INR 3.9 (0.8-3.0); PROTHROMBIN TIME 40.6 SECONDS (9.7-12.8)
[2022-12-11 14:46] LABS: BAND 10 % (0-10); HYPOCHROMIA 2+; LYMPHOCYTE 11 % (20.0-51.0); METAMYELOCYTE 2 % (0-0); NEUTROPHILS 72 % (42.0-75.2); PLATELET ESTIMATE NORMAL (NORMAL)
[2022-12-11 14:47] LABS: STOMATOCYTE 2+
[2022-12-11 15:03] LABS: COLLECTION METHOD CLEAN CATCH
[2022-12-11 15:44] LABS: PH 5.5 (5.0-8.5); SQUAMOUS EPITHELIAL 0-2 /hpf (0-10); URINE APPEARANCE Clear (CLEAR/HAZY); URINE BLOOD Negative (NEGATIVE); URINE COLOR Yellow (YELLOW); URINE GLUCOSE Negative (NEGATIVE); URINE KETONE Negative (NEGATIVE); URINE NITRATE Negative (NEGATIVE); URINE PROTEIN(semi-quant) Negative (NEGATIVE); URINE RBC None Seen /hpf (0-2); URINE UROBILINOGEN 0.2 E.U/dL (0.2-1.0)
[2022-12-11] MEDS ORDERED: ZOFRAN ODT4 MG PO ×3 (15:46→15:47)
[2022-12-11] MEDS ORDERED: DILAUDID 2MG TAB2 MG PO ×2 (15:46→15:47)
[2022-12-11 16:14] VITALS: BP 149/89; PULSE 72
== END 2022-12-11 16:25 | disposition home or self-care (01) ==
LOC: COL.ER 13:37
PROVIDERS: Emergency Medicine
DX: R10.11 Right upper quadrant pain (principal); K85.90 Acute pancreatitis without necrosis or infection, unspecified; I48.91 Unspecified atrial fibrillation; Z79.01 Long term (current) use of anticoagulants; Z99.81 Dependence on supplemental oxygen; Z90.49 Acquired absence of other specified parts of digestive tract; Z88.5 Allergy status to narcotic agent
CPT/HCPCS: J1170; J2405; Q9967

== ENCOUNTER 2023-01-07 12:21 | Emergency (ER) | payer MEDICARE ==
[~2023-01-07 12:21] MED LIST changes: +MOLNUPIRAVIR (200 MG PO; +PAXLOVID CO-PA1 EACH PO
[2023-01-07 12:28] VITALS: TEMP 97.4
[2023-01-07 12:56] LABS: BASO % 0.4 % (0.0-2.0); EOS # 0.1 K/mm3 (0.0-0.7); EOS % 0.9 % (0.0-4.0); GRAN # 8.1 K/mm3 (1.4-6.5); HEMATOCRIT 37.6 % (37.0-47.0); HEMOGLOBIN 11.5 g/dl (12.5-16.0); LYMPH # 1.4 K/mm3 (1.2-3.4); LYMPH % 12.7 % (20.0-51.0); MEAN CELL VOLUME 95 fl (80.0-100.0); MEAN CORPUSCULAR HEMOGLOBIN 29 pg (27-31); MEAN CORPUSCULAR HGB CONC 31 g/dl (33.0-37.0); MEAN PLATELET VOLUME 9.1 fl (7.4-10.4); MONO % 8.9 % (1.7-9.3); PLATELET COUNT 230 K/mm3 (130-400); RED BLOOD COUNT 3.98 M/mm3 (4.10-5.30); REDCELL DISTRIBUTION WIDTH-CV 14.2 % (11.5-14.5)
[2023-01-07 13:03] LABS: ALBUMIN 3.2 gm/dL (3.4-4.8); BILIRUBIN,TOTAL 0.2 mg/dL (0.2-1.2); CALCIUM 8.8 mg/dL (8.4-10.2); CREATININE, serum 0.92 mg/dL (0.57-1.11); POTASSIUM 4.6 mmol/L (3.5-4.5); TOTAL PROTEIN 6.3 gm/dL (6.2-8.1)
[2023-01-07 13:09] LABS: TROPONIN-I 0.011 ng/mL (0.00-0.033)
[2023-01-07 13:37] LABS: COLLECTION METHOD CLEAN CATCH
[2023-01-07 14:09] LABS: PH 6.5 (5.0-8.5); URINE APPEARANCE Clear (CLEAR/HAZY); URINE COLOR Yellow (YELLOW); URINE GLUCOSE Negative (NEGATIVE); URINE KETONE Negative (NEGATIVE); URINE NITRATE Negative (NEGATIVE); URINE PROTEIN(semi-quant) Negative (NEGATIVE); URINE UROBILINOGEN 0.2 E.U/dL (0.2-1.0)
[2023-01-07 14:10] LABS: SQUAMOUS EPITHELIAL 0-2 /hpf (0-10); URINE BACTERIA Rare /hpf (NONE SEEN); URINE BLOOD TRACE-INTACT (NEGATIVE); URINE RBC 0-2 /hpf (0-2)
[2023-01-07] MEDS ORDERED: ZITHROMAX Z PA250 MG PO (14:53)
[2023-01-07 15:09] VITALS: BP 121/86; PULSE 87
== END 2023-01-07 15:29 | disposition home or self-care (01) ==
LOC: COL.ER 12:21
PROVIDERS: Emergency Medicine
DX: J44.1 Chronic obstructive pulmonary disease with (acute) exacerbation (principal); Z88.0 Allergy status to penicillin; Z88.2 Allergy status to sulfonamides; Z88.1 Allergy status to other antibiotic agents
CPT/HCPCS: Q9967

== ENCOUNTER 2023-02-13 16:36 | Inpatient (IN) | payer MEDICARE ==
[~2023-02-13] VITALS: Ht 170.2 cm; Wt 106.3 kg
[~2023-02-13 16:36] MED LIST changes: +FLEXERIL5 MG PO
[2023-02-13 17:39] LABS: MEAN CELL VOLUME 91 fl (80.0-100.0); MEAN CORPUSCULAR HEMOGLOBIN 29 pg (27-31); MEAN CORPUSCULAR HGB CONC 32 g/dl (33.0-37.0); MEAN PLATELET VOLUME 9.1 fl (7.4-10.4); PLATELET COUNT 222 K/mm3 (130-400); RED BLOOD COUNT 3.83 M/mm3 (4.10-5.30); REDCELL DISTRIBUTION WIDTH-CV 14.2 % (11.5-14.5)
[2023-02-13 17:45] LABS: HEMATOCRIT 34.8 % (37.0-47.0)
[2023-02-13 17:54] LABS: ALANINE AMINOTRANSFERASE 43 U/L (0-55); ALBUMIN 3.2 gm/dL (3.4-4.8); ALKALINE PHOSPHATASE 49 U/L (40-150); ANION GAP 12 mmol/L (7-16); AST,SGOT 29 U/L (5-34); BILIRUBIN,TOTAL 0.2 mg/dL (0.2-1.2); BLOOD UREA NITROGEN 27 mg/dL (10-20); CALCIUM 8.5 mg/dL (8.4-10.2); CARBON DIOXIDE 25 mmol/L (23-31); CHLORIDE 105 mmol/L (98-107); CREATININE, serum 1.72 mg/dL (0.57-1.11); GLUCOSE 169 mg/dL (70-99); POTASSIUM 4.3 mmol/L (3.5-4.5); SODIUM 142 mmol/L (136-145); TOTAL PROTEIN 6.1 gm/dL (6.2-8.1)
[2023-02-13 18:01] LABS: TROPONIN-I < 0.010 ng/mL (0.00-0.033)
[2023-02-13] MEDS ORDERED: Furosemide 40 MG/4 ML VIAL IV ONE (18:15)
[2023-02-13 18:28] LABS: BAND 4 % (0-10); LYMPHOCYTE 6 % (20.0-51.0); NEUTROPHILS 89 % (42.0-75.2); PLATELET ESTIMATE NORMAL (NORMAL)
[2023-02-13 18:39] LABS: COLLECTION METHOD CLEAN CATCH
[2023-02-13 19:03] LABS: URINE APPEARANCE Clear (CLEAR/HAZY); URINE COLOR Yellow (YELLOW); URINE GLUCOSE Negative (NEGATIVE); URINE KETONE Negative (NEGATIVE); URINE NITRATE Negative (NEGATIVE); URINE PROTEIN(semi-quant) Negative (NEGATIVE); URINE UROBILINOGEN 0.2 E.U/dL (0.2-1.0)
[2023-02-13 19:04] LABS: SQUAMOUS EPITHELIAL None Seen /hpf (0-10); URINE BLOOD TRACE-INTACT (NEGATIVE)
[2023-02-13] MEDS ORDERED: NS 1,000 ML IV SCH (20:00)
[2023-02-13 20:30] LABS: INR 1.4 (0.8-3.0); PROTHROMBIN TIME 15.5 SECONDS (9.7-12.8)
[2023-02-13 20:43] LABS: MAGNESIUM 1.6 mg/dL (1.6-2.6); PHOSPHOROUS 2.5 mg/dL (2.3-4.7)
[2023-02-13 21:10] VITALS: BP 111/75; PULSE 88; TEMP 98
[2023-02-13 21:15] VITALS: BP_SYST 111
[2023-02-13] MEDS ORDERED: Albuterol/Ipratropium 3 MG-0.5 MG/3 ML Neb Soln IH PRN (21:15)
[2023-02-13] MEDS ORDERED: Pravastatin 20 MG TAB PO SCH (21:25)
[2023-02-13] MEDS ORDERED: methylPREDNISolone Sod Succ 125 MG/2 ML VIAL IV SCH (21:30)
[2023-02-13] MEDS ORDERED: Ondansetron 4 MG/2 ML VIAL IV PRN (21:30)
[2023-02-13] MEDS ORDERED: Dofetilide 250 MCG CAP PO SCH (21:32)
[2023-02-13] MEDS ORDERED: Omeprazole 40 MG **** subs to Pantoprazole 40 MG PO SCH (21:34)
[2023-02-13] MEDS ORDERED: Docusate Sodium 100 MG CAP PO SCH (21:36)
[2023-02-13] MEDS ORDERED: Budesonide/Glycopyrrolate/Formoterol **** subs to Budesonide + Umeclid/Vilant IH SCH (21:36)
[2023-02-13] MEDS ORDERED: traZODone 100 MG TAB PO SCH (21:36)
[2023-02-13] MEDS ORDERED: Lactulose Oral Soln 10 GM/15 ML CUP PO PRN (21:45)
[2023-02-13] MEDS ORDERED: Cyclobenzaprine 10 MG TAB PO PRN (21:45)
[2023-02-13] MEDS ORDERED: NS 1,000 ML IV ONE (22:15)
[2023-02-13] MEDS ORDERED: TOPROL XL 50MG50 MG PO (22:44)
[2023-02-13] MEDS ORDERED: K-TAB20 PO (22:50)
[2023-02-13] MEDS ORDERED: dexAMETHasone 10 MG/ML VIAL IV SCH (23:00)
[2023-02-13] MEDS ORDERED: Albuterol/Ipratropium 3 MG-0.5 MG/3 ML Neb Soln IH SCH (23:00)
[2023-02-13] MEDS ORDERED: Budesonide Neb Susp 0.5 MG/2 ML AMP IH SCH (23:15)
[2023-02-13] MEDS ORDERED: LR 1,000 ML IV SCH (23:15)
[2023-02-13 23:43] VITALS: BP 154/75; PULSE 92; TEMP 98
[2023-02-14] VITALS (12 sets, daily range): BP systolic 112–155; BP diastolic 59–97; PULSE 71–82; TEMP 97.6–98.2
--- NOTE | 2023-02-14 05:00 | NUR ---
PT ARRIVED TO THE MEDICAL FLOOR AROUND 2100HRS TO ROOM 314. PT A&O X 4, VSS, O2 2L VIA NC. PT DENIED GENERAL PAIN, CHEST PAIN, PALPITATIONS, N,V,D OR DIZZINESS. ADMISSIONS ASSESSMENT AND MED REC COMPLETE. PT ORIENTED TO ROOM AND HOSPITAL POLICY. ALL QUESTIONS AND CONCERNS ADDRESSED. PT EXPRESSED NO ADDITIONAL NEEDS AT THIS TIME. PT REFUSED THE YELLOW GOWN, BUT WOULD WEAR THE YELLOW SOCKS AND YELLOW BRACELET. BED ALARM ON. CALL LIGHT WITHIN REACH.
--- NOTE | 2023-02-14 07:10 | NUR ---
JEET ASLEEP, RESTING IN BED. PATIENT AROUSES TO NAME GIO. TRILOGY ON. PATIENTS CALL LIGHT WITHIN REACH. PATIENT WITH NO NEEDS OR COMPLAINTS AT THIS TIME.
[2023-02-14 08:35] LABS: HEMOGLOBIN 10.7 g/dl (12.5-16.0); MEAN CELL VOLUME 90 fl (80.0-100.0); MEAN CORPUSCULAR HEMOGLOBIN 29 pg (27-31); MEAN CORPUSCULAR HGB CONC 32 g/dl (33.0-37.0); MEAN PLATELET VOLUME 9.6 fl (7.4-10.4); PLATELET COUNT 233 K/mm3 (130-400); RED BLOOD COUNT 3.75 M/mm3 (4.10-5.30); REDCELL DISTRIBUTION WIDTH-CV 14.3 % (11.5-14.5)
[2023-02-14 08:41] LABS: HEMATOCRIT 33.6 % (37.0-47.0)
[2023-02-14] MEDS ORDERED: Umeclidinium/Vilanterol 62.5-25 MCG INHALATION/INHALER IH SCH (09:00)
[2023-02-14] MEDS ORDERED: Montelukast 10 MG TAB PO SCH (09:00)
[2023-02-14] MEDS ORDERED: DULoxetine 60 MG CAP PO SCH (09:00)
[2023-02-14] MEDS ORDERED: Magnesium Oxide 400 MG TAB PO SCH (09:00)
[2023-02-14] MEDS ORDERED: Fluticasone Nasal 50 MCG/Spray 16 GM BOTTLE NS SCH (09:00)
[2023-02-14] MEDS ORDERED: Gabapentin 100 MG CAP PO SCH (09:00)
[2023-02-14 09:06] LABS: CREATININE, serum 0.99 mg/dL (0.57-1.11); POTASSIUM 4.6 mmol/L (3.5-4.5)
[2023-02-14 09:24] LABS: BAND 9 % (0-10); LYMPHOCYTE 4 % (20.0-51.0); METAMYELOCYTE 3 % (0-0); NEUTROPHILS 84 % (42.0-75.2); PLATELET ESTIMATE NORMAL (NORMAL)
[2023-02-14 09:25] LABS: HYPOCHROMIA 1+; MICROCYTOSIS 1+
--- NOTE | 2023-02-14 10:16 | NUR ---
SW met with patient to complete intake. Patient provides that she lives in [facility] with spouse Thierry Milton [phone] and also has daughter as point of contact Denae Medina [phone]. Patient provides that she utilizes a walker and a cane for mobility, is independent with ADL's and does not utilize HH services at this time. PCP is Dr Huff, pharmacy is [facility]. Patient provides she has had no current concerns about care, and plans to return to her home upon DC and provides spouse and son Tc Osullivan have been appointed as DPOA\HC. SW will continue to follow. DC plan per patient: home
[2023-02-14] MEDS ORDERED: NS 1,000 ML IV ONE (12:30)
--- NOTE | 2023-02-14 13:00 | NUR ---
WITH MD SCHNEIDER PROTONIX DISCONTNIUED AND PATIENT HOME MED OF OMEPRAZOLE TAKEN TO PHARMACY FOR HOSPITAL USE.
[2023-02-14] MEDS ORDERED: dexAMETHasone 10 MG/ML VIAL IV SCH ×2 (16:30→21:00)
[2023-02-14] MEDS ORDERED: Patient's Own Medication Item PO SCH (16:30)
--- NOTE | 2023-02-14 18:09 | NUR ---
RN ATTEMPTED TO REACH DAY SHIFT MD AND HORTICULTURAL TECHNICAL OFFICER ANTISQUEAK APPLIER, NO ANSWER FROM EITHER.
--- NOTE | 2023-02-14 18:51 | NUR ---
NIGHT FLOWER STRIPPER CALLED AND INFORMED PATIENT STATED SHE HAS A SORE THROAT AND WOULD LIKE SOMME CHLOROSEPTIC SPRAY. PER NIGHT FLOWER STRIPPER SHE WILL PLACE THE ORDER
[2023-02-14] MEDS ORDERED: Phenol 1.4% Spray 180 ML BOTTLE MM PRN (19:00)
[2023-02-15] VITALS (12 sets, daily range): BP systolic 113–179; BP diastolic 56–108; PULSE 65–81; TEMP 97.6–98.7
[2023-02-15 07:19] LABS: HEMOGLOBIN 11.2 g/dl (12.5-16.0); MEAN CELL VOLUME 90 fl (80.0-100.0); MEAN CORPUSCULAR HEMOGLOBIN 29 pg (27-31); MEAN CORPUSCULAR HGB CONC 32 g/dl (33.0-37.0); MEAN PLATELET VOLUME 9.1 fl (7.4-10.4); PLATELET COUNT 249 K/mm3 (130-400); RED BLOOD COUNT 3.88 M/mm3 (4.10-5.30); REDCELL DISTRIBUTION WIDTH-CV 14.5 % (11.5-14.5)
[2023-02-15 07:31] LABS: HEMATOCRIT 34.9 % (37.0-47.0)
[2023-02-15 07:35] LABS: INR 1.1 (0.8-3.0); PROTHROMBIN TIME 12.1 SECONDS (9.7-12.8)
[2023-02-15 07:44] LABS: CREATININE, serum 0.94 mg/dL (0.57-1.11); POTASSIUM 4.7 mmol/L (3.5-4.5)
[2023-02-15 08:15] LABS: BAND 6 % (0-10); LYMPHOCYTE 3 % (20.0-51.0); NEUTROPHILS 88 % (42.0-75.2)
[2023-02-15 08:17] LABS: PLATELET ESTIMATE NORMAL (NORMAL)
[2023-02-15] MEDS ORDERED: dexAMETHasone 10 MG/ML VIAL IV SCH (09:00)
--- NOTE | 2023-02-15 09:00 | NUR ---
Assessment complete. Pt sitting up to side of bed. Reports "bronchial" pain but declines need for pain medication. O2 2L/NC. Reports SOA at rest. IV site infilltrated at shift change-IV site to LFA d/c'd with cath tip intact. #20g started to LAC. Pt very difficult stick- spoke to Dr. León and patient will need a PICC line placed tomorrow.
--- NOTE | 2023-02-15 11:07 | NUR ---
Rec'd order to d/c IVF. IVF not restarted after new INT placed.
--- NOTE | 2023-02-15 18:12 | NUR ---
Patient still has +[address] León notified. No new orders received. Patient denies pain or needs at this time.
[2023-02-15] MEDS ORDERED: methylPREDNISolone Sod Succ 125 MG/2 ML VIAL IV SCH (21:00)
[2023-02-16] VITALS (11 sets, daily range): BP systolic 141–190; BP diastolic 69–111; PULSE 71–83; TEMP 97.5–98.1
[2023-02-16] MEDS ORDERED: hydrALAZINE 20 MG/ML 1 ML VIAL IV PRN (04:45)
[2023-02-16 06:32] LABS: HEMOGLOBIN 10.3 g/dl (12.5-16.0); MEAN CELL VOLUME 92 fl (80.0-100.0); MEAN CORPUSCULAR HEMOGLOBIN 28 pg (27-31); MEAN CORPUSCULAR HGB CONC 31 g/dl (33.0-37.0); PLATELET COUNT 237 K/mm3 (130-400); RED BLOOD COUNT 3.63 M/mm3 (4.10-5.30); REDCELL DISTRIBUTION WIDTH-CV 14.5 % (11.5-14.5)
[2023-02-16 06:38] LABS: HEMATOCRIT 33.5 % (37.0-47.0)
[2023-02-16 06:46] LABS: INR 1.4 (0.8-3.0)
[2023-02-16 06:47] LABS: CREATININE, serum 0.95 mg/dL (0.57-1.11); MAGNESIUM 1.9 mg/dL (1.6-2.6); POTASSIUM 4.8 mmol/L (3.5-4.5)
[2023-02-16 07:00] LABS: BAND 15 % (0-10); LYMPHOCYTE 11 % (20.0-51.0); NEUTROPHILS 69 % (42.0-75.2); OVALOCYTES 1+; PLATELET ESTIMATE NORMAL (NORMAL)
--- NOTE | 2023-02-16 08:08 | NUR ---
Assessment complete. Pt sitting up at side of bed with Triolgy on. Reports SOA has worsened since receiving blood pressure medication last night. Respirations labored at 24/min. SpO2 in the 90 range. Reports non productive dry cough. Respiratory notified. Pt still has +3 pitting edema to BLE.
[2023-02-16] MEDS ORDERED: amLODIPine 5 MG TAB PO SCH (10:00)
--- NOTE | 2023-02-16 13:11 | NUR ---
fruit or nut farm worker met with patient to check if patient was still utilizing [facility]. Patient reports she does not want home health through [facility] again. If patient needs SNF, Patient does not want to go to [facility] or [facility]. Patient reports if she needs SNF, she would like [facility]. Patient is currently using a Trilogy that she is renting from [facility]. SW will continue to follow patient's care. SW was notified that patient may benefit from [facility] services. SW met with patient whom expressed the doctors met and spoke with her about this referral and she was understanding and would like to go to [facility] if they have availability. Patient would prefer [place] location. SW faxed referral to [facility].
--- NOTE | 2023-02-16 16:32 | NUR ---
wash worker was contacted by [facility] regarding revenue codes to determine if patient is eligible for [facility] services. SW requested this information. SW will follow up.
--- NOTE | 2023-02-16 19:34 | NUR ---
Pt has alternated between O2 2L/NC and trilogy throughout day. Still feeling SOA with mild exertion. BLE still with +2 to +3 pitting edema. Contacted Paola Porras APRN regarding request for Lasix- she will review chart. Pt notified and verbalizes understanding. Denies pain or needs.
--- NOTE | 2023-02-16 19:44 | NUR ---
Pt requested that this nurse call her sister and give an update. Attempted to call Jill but there was no answer. Left message on voicemail to return call to Medical Unit if any questions.
--- NOTE | 2023-02-16 19:51 | NUR ---
Bedside report received from SIMONE Bloom. Pt is currently resting in bed with family at bedside. Pt has no complaints at this time. Call light within reach.
[2023-02-17] VITALS (17 sets, daily range): BP systolic 134–186; BP diastolic 80–108; PULSE 71–98; TEMP 97.5–97.8
--- NOTE | 2023-02-17 02:10 | NUR ---
Shift assessment completed. VSS. Pt awake watching tv for most of the night. Pt requested snack and was provided with one. Pt reports no pain at this time. Triology in use and pt alternates between triology and NC independently. Pt has no complaints at this time. Call light within reach.
[2023-02-17 06:26] LABS: HEMATOCRIT 37.1 % (37.0-47.0); HEMOGLOBIN 11.6 g/dl (12.5-16.0); MEAN CELL VOLUME 92 fl (80.0-100.0); MEAN CORPUSCULAR HEMOGLOBIN 29 pg (27-31); MEAN CORPUSCULAR HGB CONC 31 g/dl (33.0-37.0); MEAN PLATELET VOLUME 9.8 fl (7.4-10.4); PLATELET COUNT 275 K/mm3 (130-400); RED BLOOD COUNT 4.05 M/mm3 (4.10-5.30); REDCELL DISTRIBUTION WIDTH-CV 14.7 % (11.5-14.5)
[2023-02-17 06:44] LABS: INR 1.7 (0.8-3.0); PROTHROMBIN TIME 17.9 SECONDS (9.7-12.8)
[2023-02-17 06:47] LABS: CREATININE, serum 1.05 mg/dL (0.57-1.11); MAGNESIUM 2.2 mg/dL (1.6-2.6); POTASSIUM 4.9 mmol/L (3.5-4.5)
--- NOTE | 2023-02-17 07:05 | NUR ---
Bedside report given to SIMONE Briggs.
[2023-02-17 07:10] LABS: BAND 5 % (0-10); LYMPHOCYTE 6 % (20.0-51.0); METAMYELOCYTE 1 % (0-0); NEUTROPHILS 84 % (42.0-75.2); NUCLEATED RED BLOOD CELL 1 (0-6)
[2023-02-17 07:11] LABS: ANISOCYTOSIS 1+; HYPOCHROMIA 1+; OVALOCYTES 1+; PLATELET ESTIMATE NORMAL (NORMAL)
--- NOTE | 2023-02-17 07:50 | NUR ---
PT SITTING ON SIDE OF BED ON ASSESSMENT THIS MORNING. PT STATED SHE FEELS SHE HAS INCREASED EDEMA TO BLE AND BRIE. HANDS, EDEMA NOTED. PT REQUESTED TO BE STARTED ON LASIX. THIS NURSE STATED THAT CAN BE DISCUSSED WHEN THE HOSPITALIST ROUNDS THIS AM. PT AGREED. MORNING MEDICATION GIVEN AND BREAKFAST ORDERED. PT PLEASANT WITH THIS NURSE.
[2023-02-17] MEDS ORDERED: amLODIPine 5 MG TAB PO ONE (09:15)
[2023-02-17] MEDS ORDERED: Furosemide 40 MG/4 ML VIAL IV ONE (09:30)
[2023-02-17] MEDS ORDERED: hydrALAZINE 20 MG/ML 1 ML VIAL IV PRN ×2 (13:15→17:00)
--- NOTE | 2023-02-17 16:21 | NUR ---
PT'S BLOOD PRESSURE HAS BEEN ELEVATED THROUGHOUT THE DAY. AMPLODIPINE WAS INCREASED TO 10MG DAILY THIS MORNING. PT GIVEN PRN HYDRALIZINE 10MG IV THIS AFTERNOON. PT BLOOD PRESSURE STILL OVER 180 SYSTOLIC THIS EVENING, HOSPITALIST NOTIFIED.
--- NOTE | 2023-02-17 17:47 | NUR ---
hog worker was notified patient was denied by [facility] as she did not meet the criteria. SW notified the patient and presented other options for SNF or Swing Bed. Patient is interested in [facility] or [facility]. Patient expressed she is not able to go home and needs rehab before returning home. CARRIE contacted [facility] whom expressed they are still full at this time. Discharge Plan: [facility]
[2023-02-17] MEDS ORDERED: diphenhydrAMINE 25 MG CAP PO ONE ×2 (18:45)
--- NOTE | 2023-02-17 21:00 | NUR ---
PT A&O X4 SITTING ON EDGE OF BED. JUST AMBULATED BACK FROM RESTROOM & C/O DYSPNEA ON EXERTION, ON TRILOGY. SHIFT ASSESSMENT COMPLETE & HS MEDS GIVEN. BP REMAINS ELEVATED 184/80, PT REFUSING PRN HYDRALAZINE BECAUSE "IT MAKES ME ITCH LIKE CRAZY". HOSPITALIST AWARE & NEW ORDER FOR 5MG METOPROLOL IV. PT DENYING PAIN. CALL LIGHT IN REACH.
[2023-02-17] MEDS ORDERED: Metoprolol Tartrate 5 MG/5 ML VIAL IV SCH (21:15)
--- NOTE | 2023-02-17 22:00 | NUR ---
2133: GIVEN IV METOPROLOL PER ORDERS. PT BP 153/84 & HR 76. 2138: GIVEN 2ND DOSE PER ORDERS, BP 150/82 & HR 72 2145: GIVEN 3RD DOSE PER ORDERS. BP 134/80 & HR 74 PT SITTING UP ON EDGE OF BED & STATES SHE IS VERY HAPPY THIS IS THE LOWEST BP SHE HAS SEEN IN A LONG TIME. CALL LIGHT IN REACH & PT DENYING FURTHER NEEDS AT THIS TIME.
[2023-02-18] VITALS (14 sets, daily range): BP systolic 129–203; BP diastolic 77–132; PULSE 76–91; TEMP 97.6–98.4
--- NOTE | 2023-02-18 00:08 | NUR ---
UPION SHIFT ASSESSMENT, ARIANA, WAS AWAKE IN BED WITH BEDSIDE. SHE VOICED FRUSTRATION R/T ITCHING D/T ALLERGIC REACTIIONS TO AMLODIPINE. SHE IS AXO X4 AND DYSPNEA ON EXERTION WAS NOTED WHILE TALKING. LUNG SOUNDS ASCULTATED EXP WHEEZES IN UPPER LOBES. ARIANA CURRENTLY DENIES CHEST PAIN. EDUCATION ON NEED FOR SPUTUM CULTURE GIVEN. VS WNL AND TELE IS NS PACED. CALL LIGHT WITHIN REACH.
[2023-02-18] MEDS ORDERED: diphenhydrAMINE 25 MG CAP PO PRN (04:00)
--- NOTE | 2023-02-18 04:59 | NUR ---
PT RESTING IN BED WITH TRILOGY ON. WAS UP MOST OF THE NIGHT SITTING ON EDGE OF BED. PT INDEPENDENTLY SWITCHES BACK & FORTH FROM THE TRILOGY TO 2L/NC. DENYING PAIN. SBP HAS REMAINED < 170 SINCE GIVEN IV METOPROLOL. CALL LIGHT IN REACH & DENYING FURTHER NEEDS.
[2023-02-18 07:44] LABS: HEMOGLOBIN 10.6 g/dl (12.5-16.0); MEAN CELL VOLUME 92 fl (80.0-100.0); MEAN CORPUSCULAR HEMOGLOBIN 28 pg (27-31); MEAN CORPUSCULAR HGB CONC 31 g/dl (33.0-37.0); MEAN PLATELET VOLUME 9.6 fl (7.4-10.4); PLATELET COUNT 250 K/mm3 (130-400); RED BLOOD COUNT 3.77 M/mm3 (4.10-5.30)
[2023-02-18 07:49] LABS: HEMATOCRIT 34.6 % (37.0-47.0)
[2023-02-18 07:53] LABS: INR 2.2 (0.8-3.0); PROTHROMBIN TIME 22.9 SECONDS (9.7-12.8)
[2023-02-18 08:02] LABS: CALCIUM 8.5 mg/dL (8.4-10.2); CREATININE, serum 0.99 mg/dL (0.57-1.11); POTASSIUM 4.7 mmol/L (3.5-4.5)
--- NOTE | 2023-02-18 08:20 | NUR ---
Assessment complete. Pt a/o x4. Sitting up on side of bed. O2 2L/NC. Reports SOA with minimal exertion. Refuses amlodipine- feels that it is the culprit for her rash. Agreeable to metoprolol. Denies pain at this time.
[2023-02-18] MEDS ORDERED: amLODIPine 10 MG TAB PO SCH (09:00)
[2023-02-18 10:25] LABS: ANISOCYTOSIS 1+; BAND 1 % (0-10); HYPOCHROMIA 3+; LYMPHOCYTE 9 % (20.0-51.0); NEUTROPHILS 78 % (42.0-75.2)
[2023-02-18 10:26] LABS: PLATELET ESTIMATE NORMAL (NORMAL)
[2023-02-18] MEDS ORDERED: Furosemide 40 MG/4 ML VIAL IV ONE (10:30)
[2023-02-18] MEDS ORDERED: hydrALAZINE 20 MG/ML 1 ML VIAL IV PRN (13:45)
--- NOTE | 2023-02-18 14:15 | NUR ---
Pt's blood pressure elevated- see flowsheet. This nurse re-checked blood pressure with dynamap to LFA and Lt leg as well as manually to LFA. Remains elevated. Pt refuses any new blood pressure medications unless cleared by Dr. Metcalf. PRN labetolol was ordered prn this morning by Dr. Priest. Dr. Metcalf notified of elevated b/p and pt's wishes to be made aware of any changes. Dr. Metcalf orders hydralazine prn- pt agreeable. Hydralazine adminsitered as ordered.
--- NOTE | 2023-02-18 15:34 | NUR ---
Order obtained for hydrocortisone and applied to affected area. Pt c/o itching to base of neck/upper neck and bilateral upper extremities- noted by scratch davis. Pt feels it occured after receiving amlodipine. Amlodipine listed in patient's allergies.
--- NOTE | 2023-02-18 16:36 | NUR ---
remelt worker was notified patient is unable to complete pulmonary rehab while in SNF or IPR. SW notified patient. Patient would like to speak with [facility]. SW contacted Eliza from [facility] whom expressed she would contact patient. SW was notified Eliza had been trying to call but had not been able to reach her. SW asked if she could provide her phone number and she stated she could. SW contacted patient and provided Eliza's number. SW requested I[facility] to look at her to see if she would be a candidate there. SW contacted [facility] to determine if they have reviewed the patient. SW will follow up. Discharge plan: TBD
[2023-02-18] MEDS ORDERED: Hydrocortisone 1% Cream 30 GM TUBE TP SCH (17:00)
--- NOTE | 2023-02-18 19:53 | NUR ---
Pt began to cough up thick green sputum today and it was observed by this nurse. Dr. Priest notified and order obatined for sputum culture. Pt informed and given specimen cup for collection. Pt upset a chest x-ray wasn't completed. Pt also reports increased itching. Using hydrocortisone cream and benadryl prn. Pt very difficult to please today and has multiple complaints. Attempted to reassure patient. Report given to oncoming nurse.
[2023-02-18] MEDS ORDERED: methylPREDNISolone Sod Succ 40 MG/ML VIAL IV SCH (21:00)
--- NOTE | 2023-02-18 21:00 | NUR ---
CALL PLACED TO HOSPITALIST CONCERNING COUMADIN ADMINISTERATION AND PATIENT'S PT-22.9-HIGH. HOSPITALIST TORB WAS TO ADMINISTER COUMADIN PATIENT'S INR WAS WNL-2.2.
[2023-02-19] VITALS (12 sets, daily range): BP systolic 147–197; BP diastolic 79–111; PULSE 71–89; TEMP 97.7–98.5
--- NOTE | 2023-02-19 03:00 | NUR ---
BP 192/111. 10MG IV HYDRALAZINE GIVEN. WILL REASSESS IN 15 MINS.
--- NOTE | 2023-02-19 04:15 | NUR ---
BP 188/100- SLIGHT IMPROVEMENT. WILL REASSESS IN 15 MINUTES.
--- NOTE | 2023-02-19 04:29 | NUR ---
PICC LINE DRESSING SATURATED WITH BLOOD. PATIENT IS ON COUMADIN AND THIS NURSE SUSPECTS INSIGNIFICANT/MINIMAL BLEEDING R/T MEDICATION. CHANGED DRESSING USING STERILE TECHNIQUE, CENTRAL LINE KIT AND ANTIMICROBIAL DISK. SKIN TEAR ALSO NOTED ON RT UPPER ARM WITH SCANT BLOOD. CLEANED WITH STERILE NS AND BANDAID PLACED.
--- NOTE | 2023-02-19 05:45 | NUR ---
BP IMPROVED 160/83. WILL MAINTAIN VIGILANCE.
[2023-02-19] MEDS ORDERED: Furosemide 40 MG/4 ML VIAL IV ONE (06:30)
--- NOTE | 2023-02-19 06:30 | NUR ---
CALL PLACED TO HOSPITALIST, PATIENT REQUESTING LASIKS TO ADDRESS +3 BLLE EDEMA. TORB FOR 40MG IV LASIXS GIVEN
[2023-02-19 07:39] LABS: HEMATOCRIT 38.1 % (37.0-47.0); HEMOGLOBIN 12.2 g/dl (12.5-16.0); MEAN CELL VOLUME 89 fl (80.0-100.0); MEAN CORPUSCULAR HEMOGLOBIN 29 pg (27-31); MEAN CORPUSCULAR HGB CONC 32 g/dl (33.0-37.0); MEAN PLATELET VOLUME 9.4 fl (7.4-10.4); PLATELET COUNT 271 K/mm3 (130-400); RED BLOOD COUNT 4.28 M/mm3 (4.10-5.30); REDCELL DISTRIBUTION WIDTH-CV 14.9 % (11.5-14.5)
[2023-02-19 08:01] LABS: CALCIUM 8.7 mg/dL (8.4-10.2); CREATININE, serum 1.14 mg/dL (0.57-1.11); INR 2.2 (0.8-3.0); MAGNESIUM 2.1 mg/dL (1.6-2.6); POTASSIUM 4.9 mmol/L (3.5-4.5); PROTHROMBIN TIME 24.1 SECONDS (9.7-12.8)
[2023-02-19 08:03] LABS: BAND 10 % (0-10); LYMPHOCYTE 8 % (20.0-51.0); METAMYELOCYTE 2 % (0-0); NEUTROPHILS 71 % (42.0-75.2); PLATELET ESTIMATE NORMAL (NORMAL)
[2023-02-19] MEDS ORDERED: Sodium Zirconium Cyclosilicate for Oral Susp 10 GM PACKET PO ONE (10:00)
[2023-02-19] MEDS ORDERED: Azithromycin 250 MG TAB PO SCH (10:00)
[2023-02-19] MEDS ORDERED: Famotidine 20 MG TAB PO SCH (10:30)
--- NOTE | 2023-02-19 11:45 | NUR ---
Assessment completed this morning. Pt on O2 2L/NC or her trilogy- switching between the two of them on her own. Reports SOA at rest and feels that she has had no improvement in her respiratory status. Reports itching to upper back/neck and BUE- hydrocortisone cream applied. Continue to have productive cough of green sputum. Sputum sample obtained and sent to lab. Zithormax administered. Blood pressures continue to be elevated- hydralazine administered. See flowsheet for most recent VS results since hydralazine administered. New order received for scheduled Apresoline. Lokelma administered for high K+. Pt became tearful and requested that we contact her functional architect. This nurse reached out to Pastor Foley and she is going to contact the patient's functional architect and request visit.
[2023-02-19] MEDS ORDERED: hydrALAZINE 25 MG TAB PO SCH (12:00)
--- NOTE | 2023-02-19 12:37 | NUR ---
Dressing to right forearm changed with aquacel dressing- hyrdocortisone cream applied prior to application of new dressing. Benadryl administered for c/o itching. Blood pressure continues to improve. Scheduled apresoline adminsitered. Moderate amount of blood noted under the PICC line dressing. Ria with [facility] notified and will come change dressing. Denies pain or needs at this time.
--- NOTE | 2023-02-19 12:51 | NUR ---
organic lab worker contacted [facility] whom expressed a physician needs to review the case still. CARRIE will follow up. CARRIE was notified by ISABELA Paris, that Dr. Karan Armstrong would like [facility] to re-review patient for services as he is not comfortable with patient discharging to a SNF facility. CARRIE contacted Eliza with [facility] whom expressed they would review; however, she was previously not meeting criteria because her diagnoses were chronic concerns rather than acute. CARRIE emailed the referral to Eliza with [facility]. CARRIE spoke with the patient about other LTACH options in the [place] area. Patient is in agreement to look if another facility would accept. SW faxed referral to [facility].
--- NOTE | 2023-02-19 19:25 | NUR ---
Pt sitting to side of bed. at bedside. Pt continues to itch but using hydrocortisone and benadryl as needed.
--- NOTE | 2023-02-19 20:00 | NUR ---
UPON SHIFT ASSESSMENT, ARIANA WAS SITTING ON BEDSIDE WITH TRILOGY ON. SHE IS PLEASANT AND AXO X4. DYPNEA WHILE ANSWERING ASSESSMENT QUESTIONS NOTED. LUNG SOUNDS NOTED EXP WHEEZES UPPER LOBES. VS WNL AND TELE NS. ARIANA STILL EXHIBITS BLLE EDEMA +3. PICC LINE DRESSING NOTED SLIGHT BLEEDING. CALL LIGHT WITHIN REACH
[2023-02-20] VITALS (13 sets, daily range): BP systolic 135–196; BP diastolic 74–105; PULSE 75–87; TEMP 97.4–98.9
--- NOTE | 2023-02-20 03:00 | NUR ---
ALERTED BY RT THAT ARIANA HAD HER TRILOGY OFF BUT DID NOT REPLACE IT WITH NC. RT STATED ARIANA SEEMED CONFUSED. REASSESSED AND ARIANA IS AXO X4, STATES, "I AM IN [place], BECAUSE I DON'T WANT TO BE IN THE HOSPITAL." SHE APPEARANTLY IS USING GUIDED IMAGERY TO DEAL WITH HER ANXIETY.
--- NOTE | 2023-02-20 07:04 | NUR ---
PATIENT IN BED RESTING, CLAIMS SHE HAD A GOOD NIGHTS REST. VS ARE WNL AND TELE IS NS PACED.
[2023-02-20 09:04] LABS: HEMOGLOBIN 11.4 g/dl (12.5-16.0); INR 2.7 (0.8-3.0); MEAN CELL VOLUME 91 fl (80.0-100.0); MEAN CORPUSCULAR HEMOGLOBIN 28 pg (27-31); MEAN CORPUSCULAR HGB CONC 31 g/dl (33.0-37.0); MEAN PLATELET VOLUME 9.5 fl (7.4-10.4); PLATELET COUNT 269 K/mm3 (130-400); PROTHROMBIN TIME 28.4 SECONDS (9.7-12.8); RED BLOOD COUNT 4.01 M/mm3 (4.10-5.30); REDCELL DISTRIBUTION WIDTH-CV 14.6 % (11.5-14.5)
[2023-02-20 09:07] LABS: HEMATOCRIT 36.4 % (37.0-47.0)
[2023-02-20 09:17] LABS: CALCIUM 8.3 mg/dL (8.4-10.2); CREATININE, serum 1.1 mg/dL (0.57-1.11); POTASSIUM 4.6 mmol/L (3.5-4.5)
[2023-02-20 09:44] LABS: BAND 4 % (0-10); LYMPHOCYTE 2 % (20.0-51.0); METAMYELOCYTE 1 % (0-0); NEUTROPHILS 90 % (42.0-75.2); NUCLEATED RED BLOOD CELL 1 (0-6); PLATELET ESTIMATE NORMAL (NORMAL)
[2023-02-20] MEDS ORDERED: cloNIDine 0.1 MG TAB PO SCH (10:30)
[2023-02-20] MEDS ORDERED: Furosemide 40 MG/4 ML VIAL IV ONE (11:00)
--- NOTE | 2023-02-20 11:22 | NUR ---
PT DOING WELL TODAY, DOES HAVE +3 PITTING EDEMA TO BILATERAL LOWER LEGS; HAS "WATER" BLISTERS PRESENT ON THE TOP OF BOTH FEET DUE TO EDEMA AND SLIGHT "BRUISING" TO RT FOOT FROM SWELLING WELL.
[2023-02-20] MEDS ORDERED: hydrALAZINE 25 MG TAB PO SCH (12:00)
[2023-02-20] MEDS ORDERED: BENADRYL25 M2 PO (14:03)
[2023-02-20] MEDS ORDERED: ZITHROMAX500 M2 PO (14:03)
[2023-02-20] MEDS ORDERED: COUMADIN 2MG2 MG/TAB PO (14:10)
[2023-02-20] MEDS ORDERED: APRESOLINE50 MG PO (14:10)
[2023-02-20] MEDS ORDERED: CATAPRES 0.1MG0.1 MG PO (14:10)
[2023-02-20] MEDS ORDERED: TOPROL XL100 MG PO (14:11)
[2023-02-20] MEDS ORDERED: PEPCID 20MG TAB20 MG PO (14:12)
[2023-02-20] MEDS ORDERED: SOLU-MEDRO40 MG/VIA1 IV (14:13)
[2023-02-20] MEDS ORDERED: HYDROCORTISON28.4 GM TP (14:13)
--- NOTE | 2023-02-20 16:24 | NUR ---
SW was contacted by [facility]. Both are reviewing patient's needs and may be able to accept. SW was notified [facility] are willing to accept patient. CARRIE met with patient and asked for her preference. Patient reviewed the options and chose [facility]. CARRIE notified [facility] that patient chose another facility. SW notified [facility] patient chose their facility. [facility] expressed they are able to accept today or tomorrow depending on the weather and transportation. CARRIE contacted [facility] whom expressed they are able to transport today around 430-5. CARRIE met with patient and notified her. Patient refused to go today as she did not want to be on the roads in the snow. CARRIE notified Dr. Priest. CARRIE contacted [facility] and rescheduled for tomorrow at 12 pm. SW notified [facility] and they are able to accept her tomorrow at 12 pm, they will just need discharge orders tomorrow morning. CARRIE notified patient of new transport time, patient's nurse, community recreation programmer and Dr. Priest. Discharge plan: LTACH
[2023-02-21] VITALS: BP_SYST 152
[2023-02-21 03:20] VITALS: BP 144/83; PULSE 72; TEMP 97.7
[2023-02-21 05:15] VITALS: BP_SYST 144
[2023-02-21 07:20] LABS: INR 2.6 (0.8-3.0); PROTHROMBIN TIME 27.3 SECONDS (9.7-12.8)
[2023-02-21 07:35] LABS: CALCIUM 8.1 mg/dL (8.4-10.2); CREATININE, serum 1.08 mg/dL (0.57-1.11); POTASSIUM 4.3 mmol/L (3.5-4.5)
--- NOTE | 2023-02-21 07:52 | NUR ---
Elizabeth slept peacefully throughout the night and had no hypertensive crisis. Skin tear to RT forearm bled and new mepiplex placed along with linen change. PICC line was CDI. Call placed to hospitalist to request hold on Coumadin-INR 2.7 and PT 27.9- skin tears continue to bleed. TORB to hold once given.
[2023-02-21 08:22] VITALS: BP 128/83; PULSE 73; TEMP 97.5
[2023-02-21] MEDS ORDERED: Furosemide 40 MG/4 ML VIAL IV ONE (08:30)
--- NOTE | 2023-02-21 12:20 | NUR ---
EMS to take the patient to [facility]. at the bedside. Discharge paperwork and personal belongings with the patient. Report called to [facility], in [facility]. No further needs in place.
--- NOTE | 2023-02-21 13:05 | NUR ---
Cigarette Making Machine Operator contacted [facility] and [facility] to confirm plan for discharge at noon. CARRIE provided report number to bedside RN. CARRIE met with patient at bedside and she advised she is agreeable to discharge to [facility] today. CARRIE faxed discharge orders to [facility]. CARRIE also contacted patient's , Thierry to confirm he was aware of discharge time. Discharge Plan: [facility]
== END 2023-02-21 12:20 | DRG 189 ==
LOC: COL.ER 16:36 → MEDICAL 19:09
PROVIDERS: Hospitalist; Nurse Practitioner Family; Physician Assistant; ADMIT Internal Medicine
DX: J96.21 Acute and chronic respiratory failure with hypoxia (principal); J44.1 Chronic obstructive pulmonary disease with (acute) exacerbation; N17.9 Acute kidney failure, unspecified; I50.30 Unspecified diastolic (congestive) heart failure; I48.91 Unspecified atrial fibrillation; Z79.01 Long term (current) use of anticoagulants; D72.829 Elevated white blood cell count, unspecified; E87.5 Hyperkalemia; E83.42 Hypomagnesemia; I10 Essential (primary) hypertension; D64.9 Anemia, unspecified; G20.A1 Parkinson's disease without dyskinesia, without mention of fluctuations; E78.5 Hyperlipidemia, unspecified; G62.9 Polyneuropathy, unspecified; K21.9 Gastro-esophageal reflux disease without esophagitis; F32.A Depression, unspecified; F41.9 Anxiety disorder, unspecified; G47.00 Insomnia, unspecified; G89.29 Other chronic pain
CPT/HCPCS: A9270; C1751; J0360; J1100; J1650; J1940; J2920; J2930; J3475; J7030